=== PATIENT | female | born 1965 | race African-American/Black ===

== ENCOUNTER 2019-10-07 11:51 | Inpatient (IN) | payer BC, OTHER, SELFPAY ==
[2019-10-07] MEDS ORDERED: Insulin Regular 300 UNITS/3 ML VIAL ONE (12:33)
[2019-10-07] MEDS ORDERED: Ondansetron PF 4 MG/2 ML Vial ONE (12:33)
[2019-10-07 12:37] LABS: Bacteria/HPF 4+ HPF (None Seen); Bilirubin Negative (Negative); Blood, Urine 3+ (Negative); Clarity Turbid (Clear); Glucose, Urine (Dipstick) Greater than 1000 mg/dL (Negative); Leukocyte 500 Leu/uL (Negative); Nitrite Negative (Negative); Protein, Urine (Dipstick) 70 mg/dL (Neg-Trace); RBC/HPF Greater than 50 HPF (0-3); Urobilinogen Normal mg/dL (Less than 2); WBC/HPF Greater than 50 HPF (0-3)
[2019-10-07 12:38] LABS: Phosphorus 6.9 mg/dL (2.3-4.7)
[2019-10-07] MEDS ORDERED: HUMULIN R 100 UNITS in Sodium Chloride 0.9% 100 ML IVPB SCH ×2 (12:41→16:15)
[2019-10-07] MEDS ORDERED: Sodium Bicarb 50 MEQ/50 ML VIAL IV SCH (12:45)
[2019-10-07 12:50] LABS: #Basophils 0.1 thou/uL (0.0-0.2); #Lymphocytes 1.1 thou/uL (1.20-3.40); #Monocytes 0.9 thou/uL (0.11-0.59); #Neutrophils 17.2 thou/uL (1.40-6.50); %Basophils 0.6 % (0.0-1.0); %Eosinophils 0.2 % (0.0-10.0); %Lymphocytes 5.9 % (21.0-51.0); %Monocytes 4.8 % (0.0-10.0); %Neutrophils 88.5 % (42.0-75.0); ALT (SGPT) 12 U/L (8-55); AST (SGOT) 18 U/L (5-34); Albumin 4.6 g/dL (3.5-5.0); Alkaline Phosphatase 194 U/L (40-110); BUN (Urea Nitrogen) 31 mg/dL (9.8-20.1); Bilirubin, Total 0.4 mg/dL (0.2-1.2); Calc. Creatinine Clearance 0 mL/min (70-130); Calcium 9.9 mg/dL (7.8-10.44); Carbon Dioxide Less than 8 mmol/L (22-29); Estimated GFR-MDRD 26; Globulin 4.7 g/dL (2.4-3.5); Glucose 746 mg/dL (70-105); Hemoglobin 15.7 g/dL (12.0-16.0); Large Platelets SLIGHT; MDiff Complete? YES; Mean Corpuscular HGB CONC 29.4 g/dL (32.0-36.0); Mean Corpuscular Hemoglobin 26.9 pg (27.0-31.0); Mean Corpuscular Volume 91.5 fL (78.0-98.0); Mean Platelet Volume 11.3 fL (7.4-10.4); Platelet Count 291 thou/uL (130-400); Protein, Total 9.3 g/dL (6.0-8.3); RBC Distribution Width 15.2 % (11.5-14.5); Red Blood Cell (RBC) Count 5.84 mill/uL (4.20-5.40); White Blood Cell (WBC) Count 19.4 thou/uL (4.8-10.8)
--- NOTE | 2019-10-07 12:53 | RAD ---
EXAM: Portable chest PROVIDED CLINICAL HISTORY: Altered mental status COMPARISON: 01/27/2017 FINDINGS: Cardiac and mediastinal silhouette is within normal limits. No focal consolidation, pleural fluid or pneumothorax evident. IMPRESSION: No evidence for an acute cardiopulmonary process.
[2019-10-07] MEDS ORDERED: Cefepime 2 GM VIAL ONE (12:56)
[2019-10-07 12:57] LABS: Chloride 105 mmol/L (98-107); Potassium 6.1 mmol/L (3.5-5.1); Sodium 138 mmol/L (136-145)
[2019-10-07] MEDS ORDERED: Dextrose 5% in Water 1,000 ML IV PRN (13:30)
[2019-10-07] MEDS ORDERED: Sodium Chloride 0.9% 1,000 ML IV PRN ×8 (13:30→16:03)
[2019-10-07] MEDS ORDERED: Dextrose 5 %-0.45 % NaCl 1,000 ML IV PRN ×2 (13:30→16:03)
[2019-10-07] MEDS ORDERED: Sodium Chloride 0.9% 1,000 ML IV SCH (13:30)
[2019-10-07] MEDS ORDERED: Ondansetron PF 4 MG/2 ML Vial IVP PRN ×2 (13:30→16:03)
[2019-10-07] MEDS ORDERED: Ondansetron ODT 4 MG TAB SL PRN (13:30)
[2019-10-07] MEDS ORDERED: D5 1/2 NS w/20 mEq KCL 1,000 ML IV PRN ×2 (13:30→16:03)
[2019-10-07] MEDS ORDERED: NS 0.9% w/ 20 MEQ KCL 1,000 ML/1,000 ML BAG IV PRN ×2 (13:30)
[2019-10-07] MEDS ORDERED: Dextrose 50% Abboject 50 ML SYRINGE SLOW IVP PRN (13:30)
--- NOTE | 2019-10-07 14:20 | HP ---
PRIMARY CARE PHYSICIAN: [facility] Call admission. REASON FOR ADMISSION: Diabetes ketoacidosis. HISTORY OF PRESENT ILLNESS: A 53-year-old female who has underlying history of diabetes requiring insulin and she was not taking insulin for last three months. For last several days, the patient was having polyuria, polydipsia, and she was losing weight. The patient was also having dizziness, lightheadedness, and her condition gotten worse for last three days and that is why family member brought her to emergency room for evaluation. In the emergency room, the patient appeared lethargic and very weak. She had routine blood test, which showed leukocytosis with left shift and carbon dioxide was less than 8 and her potassium was 6.1 with blood sugar 746 and lactic acid 6.3. The patient was also having ketosis and her urinalysis was consistent with UTI. In the emergency room, the patient was tachycardic, though hemodynamically stable and she was also tachypneic. In the emergency room, the patient was given IV fluid up until she started making urine and she was given bolus insulin and subsequently insulin drip was started as well as empiric broad-spectrum antibiotic therapy given after culture. The patient also received one ampule of sodium bicarbonate in the emergency room. REVIEW OF SYSTEMS: CONSTITUTIONAL: Negative for weight loss or gain, ability to conduct usual activities. SKIN: Negative for rash, itching. EYES: Negative for double vision, pain. ENT/MOUTH: Negative for nose bleeding, neck stiffness, pain, tenderness. CARDIOVASCULAR: Negative for palpitations, dyspnea on exertion, orthopnea. RESPIRATORY: Negative for shortness of breath, wheezing, cough, hemoptysis, fever or night sweats. GASTROINTESTINAL: Negative for poor appetite, abdominal pain, heartburn, nausea, vomiting, constipation, or diarrhea. GENITOURINARY: Negative for urgency, frequency, dysuria, nocturia. MUSCULOSKELETAL: Negative for pain, swelling. NEUROLOGIC/PSYCHIATRIC: Negative for anxiety, depression. ALLERGY/IMMUNOLOGIC: Negative for skin rash, bleeding tendency. Please see my HPI for pertinent positives and negatives. All other review of systems reviewed and negative except as mentioned in HPI. Above-mentioned review of system is limited because of mental status. PAST MEDICAL HISTORY: Diabetes, type 2, requiring insulin and hypertension. PAST SURGICAL HISTORY: Knee surgery. PAST PSYCHIATRIC HISTORY: Reviewed and negative. ALLERGIES: NO KNOWN DRUG ALLERGIES. CURRENT HOME MEDICATIONS: The patient was only taking amitriptyline 10 mg as needed for sleep. FAMILY HISTORY: Congestive heart failure in her mother. SOCIAL HISTORY: The patient lives alone by herself. No history of tobacco, alcohol, or illicit drug abuse. EMERGENCY ROOM COURSE: The patient has received vancomycin, Levaquin, IV fluid, sodium bicarbonate, insulin bolus and some insulin drip and cefepime. PHYSICAL EXAMINATION: VITAL SIGNS: Currently, blood pressure 159/112, respiratory rate 38, temperature 97.6, saturation 100% on room air with pulse 122. Weight 89.8 kg. GENERAL: The patient is currently alert, awake, follows simple command, tachycardic, tachypneic, no obvious acute distress. HEENT: Head; normocephalic, atraumatic. Eyes; pupils round, reactive to light. Extraocular muscle intact. ENT; dry mucous membranes. No oral lesion. No pharyngeal erythema. No exudate. NECK: Supple. No JVD. No meningeal signs of irritation. LUNGS: Clear to auscultation without any rhonchi or rales. CARDIAC: S1, S2 regular. Tachycardia. No murmur. No gallop. No rub. ABDOMEN: Soft, bowel sounds present, nontender, nondistended. No organomegaly. No mass. No suprapubic tenderness. BACK: No CVA tenderness. EXTREMITIES: Upper extremities, passive movement of all joints are normal. Lower extremity, no edema. Good distal pulsation. SKIN: No skin rash. HEMATOLOGICAL SYSTEM: No lymphadenopathy. PSYCHIATRIC: Normal affect. NEUROLOGIC: Nonfocal examination. She moves all 4 limbs. SIGNIFICANT LABORATORY DATA: EKG showing sinus tachycardia. Chest x-ray based on my review no acute cardiopulmonary process. CBC; WBC 19.4, hemoglobin 15.7, platelet 291. BMP; Sodium 138, potassium 6.1, chloride 105, carbon dioxide less than 8, BUN 31, creatinine 2.36, glucose 746, calcium 9.9, protein 9.3, albumin 4.6, AST 18, ALT 12, alkaline phosphatase 194. Lactic acid 6.3. Troponin less than 0.010. Urinalysis consistent with urinary tract infection. Magnesium 3.0, phosphorus 6.9. Beta hydroxybutyrate 12.19. ASSESSMENT: 1. Severe diabetes ketoacidosis with met. 2. Metabolic acidosis with lactic acidosis. 3. Sepsis criteria. 4. Urinary tract infection. 5. Hyperkalemia likely due to metabolic acidosis. 6. Hyperglycemia with diabetic ketoacidosis. 7. Noncompliance with the treatment. PLAN: The patient will be admitted to the ICU for close monitoring. Diabetes ketoacidosis protocol will be initiated. Pulmonary has been notified from emergency room. The patient will be given empiric antibiotic therapy with cefepime and Levaquin for now. Once diabetes ketoacidosis resolves and anion gap closed, at that time, we will start dextrose solution and insulin drip and subsequently, we will change to only insulin therapy. Deep venous thrombosis prophylaxis; heparin 5,000 units subcu twice daily. GI prophylaxis; Protonix 40 mg IV daily. CODE STATUS: Full code. The patient is full code. The patient does not have any surrogate decision maker. DISPOSITION PLAN: Based on clinical course. We are expecting the patient's stay in the hospital more than 2 midnights. Plan of care discussed with the patient and family member at bedside in the emergency room. The patient will be given bicarbonate and electrolytes will be replaced accordingly as per protocol. Job ID: [id number]
[2019-10-07 15:28] LABS: Lactic Acid 4.3 mmol/L (0.5-2.2)
[2019-10-07] MEDS ORDERED: Loratadine 10 MG TAB PO PRN (16:03)
[2019-10-07] MEDS ORDERED: Sodium Chloride 0.65% Nasal 44 ML BOT EA NARE PRN (16:03)
[2019-10-07] MEDS ORDERED: NS 0.9% w/ 20 MEQ KCL 1,000 ML IV PRN ×2 (16:03)
[2019-10-07] MEDS ORDERED: Senokot S 8.6-50 MG TAB PO PRN (16:03)
[2019-10-07] MEDS ORDERED: Loperamide HCl 2 MG CAP PO PRN (16:03)
[2019-10-07] MEDS ORDERED: HYDROcodone/Acetaminophen 5/325 mg Tablet PO PRN (16:03)
[2019-10-07] MEDS ORDERED: Cepastat Lozenges 1 LOZ PO PRN (16:03)
[2019-10-07] MEDS ORDERED: CCU Electrolyte Replacement 1 EACH IVPB ONE (16:03)
[2019-10-07] MEDS ORDERED: Artificial Tears 18 DROP/0.9 ML EA EYE PRN (16:03)
[2019-10-07] MEDS ORDERED: Labetalol HCl 100 MG/20 ML VIAL SLOW IVP PRN (16:03)
[2019-10-07] MEDS ORDERED: Calcium Carbonate 500 MG ChewTAB PO PRN (16:03)
[2019-10-07] MEDS ORDERED: Bisacodyl 10 MG SUPP PR PRN (16:03)
[2019-10-07] MEDS ORDERED: Potassium Phosphate 9 MMOL in Sodium Chloride 0.9% 100 ML IVPB PRN (16:14)
[2019-10-07] MEDS ORDERED: Potassium Chloride 20 MEQ TAB PO PRN (16:14)
[2019-10-07] MEDS ORDERED: Magnesium 2 GM/50 ML 2 GM in Premix Bag 1 BAG IVPB PRN (16:14)
[2019-10-07] MEDS ORDERED: Potassium Chloride 40 MEQ in Sodium Chloride 0.9% 250 ML 250 ML IVPB PRN (16:14)
[2019-10-07] MEDS ORDERED: Potassium Chloride 40 MEQ in Premix Bag 1 BAG IVPB PRN (16:14)
[2019-10-07] MEDS ORDERED: Potassium Phosphate 12 MMOL in Sodium Chloride 0.9% 250 ML 250 ML IV PRN (16:14)
[2019-10-07] MEDS ORDERED: Magnesium Oxide 400 MG TAB PO PRN ×2 (16:14)
[2019-10-07] MEDS ORDERED: PHOS-NAK 1 PKT PACK PO PRN ×2 (16:14)
[2019-10-07] MEDS ORDERED: CCU ELECTROLYTE REPLACEMENT PROTOCOL FS PRN (16:14)
[2019-10-07] MEDS ORDERED: Potassium Phosphate 15 MMOL in Sodium Chloride 0.9% 250 ML 250 ML IV PRN (16:14)
[2019-10-07] MEDS ORDERED: ADD ELECTROLYTE REPLACEMENT SET TO PROFILE FS SCH (16:15)
[2019-10-07] MEDS ORDERED: Insulin Regular 300 UNITS/3 ML VIAL IVP SCH (16:15)
[2019-10-07 16:37] VITALS: BMI 26.3
[2019-10-07 17:02] LABS: BUN (Urea Nitrogen) 33 mg/dL (9.8-20.1); Calc. Creatinine Clearance 41 mL/min (70-130); Calcium 9.5 mg/dL (7.8-10.44); Chloride 110 mmol/L (98-107); Estimated GFR-MDRD 31; Potassium 5.7 mmol/L (3.5-5.1); Sodium 141 mmol/L (136-145)
[2019-10-07 17:04] LABS: Carbon Dioxide Less than 8 mmol/L (22-29); Glucose 625 mg/dL (70-105)
[2019-10-07 20:08] LABS: BUN (Urea Nitrogen) 38 mg/dL (9.8-20.1); Calc. Creatinine Clearance 40 mL/min (70-130); Calcium 9.2 mg/dL (7.8-10.44); Chloride 113 mmol/L (98-107); Estimated GFR-MDRD 30; Glucose 549 mg/dL (70-105); Potassium 5.5 mmol/L (3.5-5.1); Sodium 141 mmol/L (136-145)
[2019-10-07 20:10] LABS: Carbon Dioxide Less than 8 mmol/L (22-29)
[2019-10-07] MEDS: Heparin 5,000 UNITS/ML VIAL SC SCH (20:37)
[2019-10-07] MEDS: HUMULIN R 100 UNITS in Sodium Chloride 0.9% 100 ML IVPB SCH (22:07)
[2019-10-08 00:48] LABS: Anion Gap 19 mmol/L (10-20); BUN (Urea Nitrogen) 44 mg/dL (9.8-20.1); Calc. Creatinine Clearance 37 mL/min (70-130); Calcium 9.3 mg/dL (7.8-10.44); Carbon Dioxide 10 mmol/L (22-29); Chloride 119 mmol/L (98-107); Estimated GFR-MDRD 27; Glucose 239 mg/dL (70-105); Potassium 4.3 mmol/L (3.5-5.1); Sodium 144 mmol/L (136-145)
[2019-10-08] MEDS: Cefepime 1 GM in Sodium Chloride 0.9% 100 ML IVPB SCH ×2 (02:15→14:04)
[2019-10-08] MEDS: HUMULIN R 100 UNITS in Sodium Chloride 0.9% 100 ML IVPB SCH (03:01)
[2019-10-08 05:24] LABS: Hemoglobin A1c Greater than 14.0 % (4.0-6.0)
[2019-10-08 05:42] LABS: ALT (SGPT) 9 U/L (8-55); AST (SGOT) 15 U/L (5-34); Albumin 3.4 g/dL (3.5-5.0); Alkaline Phosphatase 103 U/L (40-110); Anion Gap 15 mmol/L (10-20); BUN (Urea Nitrogen) 47 mg/dL (9.8-20.1); Bilirubin, Total 0.5 mg/dL (0.2-1.2); Calc. Creatinine Clearance 37 mL/min (70-130); Calcium 9.1 mg/dL (7.8-10.44); Carbon Dioxide 12 mmol/L (22-29); Chloride 120 mmol/L (98-107); Estimated GFR-MDRD 27; Globulin 3.5 g/dL (2.4-3.5); Glucose 175 mg/dL (70-105); Magnesium 2.2 mg/dL (1.6-2.6); Potassium 4.1 mmol/L (3.5-5.1); Protein, Total 6.9 g/dL (6.0-8.3); Sodium 143 mmol/L (136-145)
[2019-10-08 05:43] LABS: Phosphorus Less than 1.0 mg/dL (2.3-4.7)
[2019-10-08 05:55] LABS: #Lymphocytes 1.2 thou/uL (1.20-3.40); #Monocytes 0.7 thou/uL (0.11-0.59); #Neutrophils 14.2 thou/uL (1.40-6.50); %Eosinophils 0.2 % (0.0-10.0); %Lymphocytes 7.6 % (21.0-51.0); %Monocytes 4.5 % (0.0-10.0); %Neutrophils 87.7 % (42.0-75.0); Hemoglobin 13.2 g/dL (12.0-16.0); Mean Corpuscular HGB CONC 31.2 g/dL (32.0-36.0); Mean Corpuscular Hemoglobin 26.4 pg (27.0-31.0); Mean Corpuscular Volume 84.4 fL (78.0-98.0); Mean Platelet Volume 9.9 fL (7.4-10.4); Platelet Count 192 thou/uL (130-400); RBC Distribution Width 14.6 % (11.5-14.5); Red Blood Cell (RBC) Count 5.02 mill/uL (4.20-5.40); White Blood Cell (WBC) Count 16.1 thou/uL (4.8-10.8)
[2019-10-08 06:51] LABS: Lactic Acid 1.1 mmol/L (0.5-2.2)
[2019-10-08] MEDS ORDERED: Dextrose 50% Abboject 50 ML SYRINGE SLOW IVP PRN (08:20)
[2019-10-08] MEDS ORDERED: Dextrose 5% in Water 1,000 ML IV PRN (08:20)
[2019-10-08 09:00] LABS: Bicarbonate (HCO3v) 4.6 mmol/L (22.0-28.0); CO2 Tension (PvCO2) 31.4 mmHg (40.0-50.0); Calcium, Ionized 1.18 mmol/L (See Comments:); Chloride 114 mmol/L (98-107); Hemoglobin - Calc 18.2 g/dL (12.0-16.0); Potassium 5.6 mmol/L (3.5-5.1); Sodium 128 mmol/L (138-145); T. Carbon Dioxide 5.6 mmol/L (22.0-28.0); vO2 Saturation-calc 48.8 % (60.0-85.0)
[2019-10-08] MEDS ORDERED: FLU VACC QS2019-20(6MOS UP)/PF 60 MCG/0.5 ML SYRINGE IM ONE (09:00)
[2019-10-08 09:10] LABS: Base Excess-Venous Less than -30.0 mmol/L (-2.0 to 3.0)
[2019-10-08] MEDS: Sodium Chloride 0.45% 1,000 ML IV SCH ×2 (09:13→20:18)
[2019-10-08] MEDS: Heparin 5,000 UNITS/ML VIAL SC SCH ×3 (09:14→20:19)
[2019-10-08] MEDS: PHOS-NAK 1 PKT PACK PO SCH ×3 (09:14→20:19)
[2019-10-08] MEDS ORDERED: HumuLIN 70/30 (300 UNITS/3 ML VIAL) SC SCH ×2 (09:15→17:00)
--- NOTE | 2019-10-08 09:49 | CON ---
DATE OF CONSULTATION: 10/08/2019 CONSULTING PHYSICIAN: [facility]ist Group. REASON FOR CONSULTATION: DKA. HISTORY OF PRESENT ILLNESS: A 53-year-old female, who came in with polyuria, polydipsia, and weight loss with a blood sugar of 746 and a potassium of 6.1. She was put on DKA protocol, apparently has already closed her gap to the point where she is being taken off the insulin drip this morning. She has no acute complaints. PAST MEDICAL HISTORY: 1. Diabetes type 2 requiring insulin. 2. Hypertension. PAST SURGICAL HISTORY: Knee surgery. ALLERGIES: NONE. MEDICATIONS: Prior to admission; amitriptyline 10 mg as needed for sleep. It is not clear if she was treating her diabetes at all. SOCIAL HISTORY: Nonsmoker. Does not consume alcohol. Does not use illicit drugs. PHYSICAL EXAMINATION: VITAL SIGNS: Temperature 97.7, pulse 85, blood pressure 129/73, O2 saturations 99%. GENERAL: She is awake, in no distress. HEENT: Unremarkable. NECK: No adenopathy or JVD. CHEST: Clear anteriorly. CARDIAC: S1 and S2. Regular. ABDOMEN: Soft. EXTREMITIES: No edema. NEUROLOGIC: She moves all 4 extremities. Alert and oriented x4. IMAGING STUDIES: Chest x-ray shows no acute findings. LABORATORY DATA: White blood cell count 16.1, hematocrit 42.3, and platelet count 192. Sodium 143, potassium 4.1, chloride 120, CO2 of 12, anion gap 11, BUN 47, creatinine 2.3, glucose 175. Hemoglobin A1c greater than 14. Urinalysis showed glucosuria. Beta-hydroxybutyrate was initially 12, now down to 2.1. ASSESSMENT: Type 2 diabetes with medical noncompliance, admitted for severe hyperglycemia with diabetic ketoacidosis. PLAN: The patient is being switched over to subcutaneous insulin and she is going to be fed. My assumption is she will be probably transferring out of the CCU. I agree with current management. Job ID: [id number]
--- NOTE | 2019-10-08 14:10 | PDOC.HOSPP ---
- Subjective Encounter Date: 10/08/19 Encounter Time: 10:30 Subjective: Patient seen and examined. No new complaints. No overnight events - Objective Vital Signs & Weight: Vital Signs (12 hours) Temp 10/08/19 07:00 98.0 F Weight Weight 178 lb 2.136 oz Most Recent Monitor Data Heart Rate from ECG 79 NIBP 125/74 NIBP BP-Mean 91 Respiration from ECG 29 SpO2 96 I&O: 10/07/19 10/08/19 10/09/19 06:59 06:59 06:59 Intake Total 3547.8 1270 Output Total 1350 250 Balance 2197.8 1020 Result Diagrams: 10/08/19 03:26 10/08/19 03:26 Additional Labs: Accuchecks 10/08/19 10/08/19 10/08/19 11:23 10:26 09:26 POC Glucose 125 H 136 H 159 H 10/08/19 10/08/19 10/08/19 08:03 07:03 06:19 POC Glucose 170 H 155 H 151 H 10/08/19 10/08/19 10/08/19 05:20 04:03 03:00 POC Glucose 148 H 179 H 153 H 10/08/19 10/08/19 10/07/19 02:06 00:09 23:13 POC Glucose 188 H 220 H 280 H 10/07/19 10/07/19 10/07/19 22:00 21:02 20:07 POC Glucose 305 H 372 H 412 H 10/07/19 10/07/19 10/07/19 19:07 18:04 17:14 POC Glucose 461 H 515 H 531 H 10/07/19 10/07/19 10/07/19 15:48 14:43 12:07 POC Glucose Greater than 550 H* Greater than 550 H* Greater than 550 H* Radiology Reviewed by me: Yes EKG Reviewed by me: Yes Hospitalist ROS - Review of Systems ENT: denies: ear pain, ear discharge, nose pain, nose discharge, nose congestion , mouth pain, mouth swelling, throat pain, throat swelling, other Respiratory: denies: cough, dry, shortness of breath, hemoptysis, SOB with excertion, pleuritic pain, sputum, wheezing, other Cardiovascular: denies: chest pain, palpitations, orthopnea, paroxysmal noc. dyspnea, edema, light headedness, other Gastrointestinal: denies: nausea, vomiting, abdominal pain, diarrhea, constipation, melena, hematochezia, other Genitourinary: denies: dysuria, frequency, incontinence, hematuria, retention, other Musculoskeletal: denies: neck pain, shoulder pain, arm pain, back pain, hand pain, leg pain, foot pain, other - Medication Medications: Active Medications Generic Name Dose Route Start Last Admin Trade Name Freq PRN Reason Stop Dose Admin Heparin Sodium (Porcine) 5,000 units 10/07/19 21:00 10/08/19 09:14 Heparin SC 5,000 units TID KALYANI Administration Cefepime HCl 1 gm/ Sodium 100 mls @ 200 mls/hr 10/08/19 01:00 10/08/19 02:15 Chloride IVPB 100 mls 0100,1300 KALYANI Administration Sodium Chloride 1,000 mls @ 100 mls/hr 10/08/19 08:30 10/08/19 09:13 1/2 Normal Saline IV 1,000 mls .Q10H KALYANI Administration Miscellaneous Medication 1 pkt 10/08/19 09:00 10/08/19 09:14 Phos-Nak PO 1 pkt TID KALYANI Administration - Exam General Appearance: NAD, awake alert Eye: PERRL, anicteric sclera ENT: normocephalic atraumatic, no oropharyngeal lesions Neck: supple, symmetric, no JVD, no thyromegaly Heart: RRR, no murmur, no gallops, no rubs Respiratory: CTAB, no wheezes, no rales, no ronchi Gastrointestinal: soft, non-tender, non-distended, normal bowel sounds Extremities: no cyanosis, no clubbing, no edema Skin: normal turgor, no lesions Neurological: no focal deficits Musculoskeletal: normal tone, normal strength Psychiatric: normal affect, normal behavior Hosp A/P (1) Acute metabolic encephalopathy Code(s): G93.41 - METABOLIC ENCEPHALOPATHY Status: Resolved (2) DKA (diabetic ketoacidoses) Code(s): E11.10 - TYPE 2 DIABETES MELLITUS WITH KETOACIDOSIS WITHOUT COMA Status: Resolved Qualifiers: Diabetes mellitus type: type 2 (3) Acute kidney failure Status: Acute (4) Metabolic acidosis Code(s): E87.2 - ACIDOSIS Status: Acute (5) DM2 (diabetes mellitus, type 2) Status: Chronic (6) Lactic acidosis Code(s): E87.2 - ACIDOSIS Status: Ruled-out (7) UTI (urinary tract infection) Status: Acute - Plan old records reviewed/req, continue antibiotics 10/08/19 transfer to medical continue IVF continue IV antibiotics start insulin 70/30 15 unit sc bid sliding scale insulin replace phosphorus repeat labs tomorrow
[2019-10-08] MEDS: Insulin Regular 300 UNITS/3 ML VIAL SC PRN ×2 (18:04→20:20)
[2019-10-08] MEDS: Acetaminophen 325 MG TAB PO PRN (18:09)
[2019-10-09] MEDS: Acetaminophen 325 MG TAB PO PRN ×2 (00:34→17:05)
[2019-10-09] MEDS: Cefepime 1 GM in Sodium Chloride 0.9% 100 ML IVPB SCH (00:35)
[2019-10-09] MEDS: Insulin Regular 300 UNITS/3 ML VIAL SC PRN ×2 (00:37→05:11)
[2019-10-09 05:15] LABS: #Lymphocytes 0.8 thou/uL (1.20-3.40); #Monocytes 0.8 thou/uL (0.11-0.59); #Neutrophils 8.8 thou/uL (1.40-6.50); %Basophils 0.2 % (0.0-1.0); %Lymphocytes 7.4 % (21.0-51.0); %Monocytes 7.2 % (0.0-10.0); %Neutrophils 85.2 % (42.0-75.0); Hemoglobin 12.3 g/dL (12.0-16.0); Mean Corpuscular HGB CONC 30.5 g/dL (32.0-36.0); Mean Corpuscular Hemoglobin 25.2 pg (27.0-31.0); Mean Corpuscular Volume 82.8 fL (78.0-98.0); Mean Platelet Volume 10.3 fL (7.4-10.4); Platelet Count 140 thou/uL (130-400); RBC Distribution Width 15.2 % (11.5-14.5); Red Blood Cell (RBC) Count 4.89 mill/uL (4.20-5.40); White Blood Cell (WBC) Count 10.4 thou/uL (4.8-10.8)
[2019-10-09] MEDS: Ondansetron ODT 4 MG TAB PO PRN ×2 (05:18→12:33)
[2019-10-09] MEDS: Sodium Chloride 0.45% 1,000 ML IV SCH ×4 (05:21→23:51)
[2019-10-09 05:36] LABS: Anion Gap 15 mmol/L (10-20); BUN (Urea Nitrogen) 55 mg/dL (9.8-20.1); Calc. Creatinine Clearance 25 mL/min (70-130); Calcium 8.8 mg/dL (7.8-10.44); Carbon Dioxide 10 mmol/L (22-29); Chloride 117 mmol/L (98-107); Estimated GFR-MDRD 18; Glucose 275 mg/dL (70-105); Phosphorus 1.5 mg/dL (2.3-4.7); Potassium 4.1 mmol/L (3.5-5.1); Sodium 138 mmol/L (136-145)
[2019-10-09] MEDS ORDERED: Potassium Phosphate 9 MMOL in Sodium Chloride 0.9% 100 ML IVPB PRN (05:59)
[2019-10-09] MEDS ORDERED: Sodium Phosphate 30 MMOL in Sodium Chloride 0.9% 250 ML 250 ML IVPB SCH (07:30)
[2019-10-09] MEDS: cefTRIAXone\\ROCEPHIN 1 GM in Sodium Chloride 0.9% 100 ML IVPB SCH (08:51)
[2019-10-09] MEDS: PHOS-NAK 1 PKT PACK PO SCH ×3 (08:53→20:01)
[2019-10-09] MEDS: Heparin 5,000 UNITS/ML VIAL SC SCH ×3 (08:53→20:02)
--- NOTE | 2019-10-09 09:35 | PDOC.HOSPP ---
- Subjective Encounter Date: 10/09/19 Encounter Time: 09:15 Subjective: Patient seen and examined. No new complaints. No overnight events - Objective Vital Signs & Weight: Vital Signs (12 hours) Temp Pulse Resp BP Pulse Ox 10/09/19 08:22 99.5 F 80 18 137/79 98 10/09/19 04:00 98.2 F 81 18 143/81 H 98 10/09/19 00:00 98.6 F 88 18 133/80 99 Weight Admit Weight 178 lb Weight 178 lb 2.136 oz Most Recent Monitor Data Heart Rate from ECG 79 NIBP 125/74 NIBP BP-Mean 91 Respiration from ECG 29 SpO2 96 I&O: 10/08/19 10/09/19 10/10/19 06:59 06:59 06:59 Intake Total 3547.8 2870 Output Total 1350 250 Balance 2197.8 2620 Result Diagrams: 10/09/19 04:46 10/09/19 04:46 Additional Labs: Accuchecks 10/09/19 10/09/19 10/08/19 05:00 00:25 20:18 POC Glucose 255 H 245 H 322 H 10/08/19 10/08/19 10/08/19 17:01 11:23 10:26 POC Glucose 299 H 125 H 136 H 10/08/19 09:26 POC Glucose 159 H Hospitalist ROS - Review of Systems Eyes: denies: pain, vision change, conjunctivae inflammation, eyelid inflammation, redness, other ENT: denies: ear pain, ear discharge, nose pain, nose discharge, nose congestion , mouth pain, mouth swelling, throat pain, throat swelling, other Respiratory: reports: cough, sputum. denies: dry, shortness of breath, hemoptysis, SOB with excertion, pleuritic pain, wheezing, other Cardiovascular: denies: chest pain, palpitations, orthopnea, paroxysmal noc. dyspnea, edema, light headedness, other Gastrointestinal: denies: nausea, vomiting, abdominal pain, diarrhea, constipation, melena, hematochezia, other Genitourinary: denies: dysuria, frequency, incontinence, hematuria, retention, other Musculoskeletal: denies: neck pain, shoulder pain, arm pain, back pain, hand pain, leg pain, foot pain, other - Medication Medications: Active Medications Generic Name Dose Route Start Last Admin Trade Name Freq PRN Reason Stop Dose Admin Acetaminophen 650 mg 10/07/19 16:03 10/09/19 00:34 Tylenol PO 650 mg Q4H PRN Administration Headache/Fever/Mild Pain (1-3) Heparin Sodium (Porcine) 5,000 units 10/07/19 21:00 10/09/19 08:53 Heparin SC 5,000 units TID KALYANI Administration Potassium Phosphate 9 mmol/ 103 mls @ 25.75 mls/hr 10/09/19 05:59 10/09/19 06 :28 Sodium Chloride IVPB 103 mls ASDIR PRN Administration Phosphate 1.0-1.8 Sodium Chloride 1,000 mls @ 125 mls/hr 10/09/19 07:30 10/09/19 08:51 1/2 Normal Saline IV 1,000 mls .Q8H KALYANI Administration Ceftriaxone Sodium 1 gm/ 100 mls @ 200 mls/hr 10/09/19 08:00 10/09/19 08:51 Sodium Chloride IVPB 100 mls Q24HR KALYANI Administration Insulin Human Regular 0 units 10/08/19 08:20 10/09/19 05:11 Humulin R SC 9 unit .AGGRESSIVE SLIDING PRN Administration Aggressive Correctional Scale Insulin Human Regular 0 units 10/08/19 08:20 10/09/19 00:37 Humulin R SC 2 unit .BEDTIME SLIDING SC PRN Administration Bedtime Correctional Scale Miscellaneous Medication 1 pkt 10/08/19 09:00 10/09/19 08:53 Phos-Nak PO 1 pkt TID KALYANI Administration Ondansetron HCl 4 mg 10/07/19 16:03 10/09/19 05:18 Zofran Odt PO 4 mg Q6H PRN Administration Nausea/Vomiting - Exam General Appearance: NAD, awake alert Eye: PERRL, anicteric sclera ENT: normocephalic atraumatic, no oropharyngeal lesions Neck: supple, symmetric, no JVD Heart: RRR, no murmur, no gallops Respiratory: CTAB, no wheezes, no rales Gastrointestinal: soft, non-tender, non-distended, normal bowel sounds Extremities: no cyanosis, no clubbing, no edema Skin: normal turgor, no lesions Neurological: no focal deficits Musculoskeletal: normal tone, normal strength Psychiatric: normal affect, normal behavior Hosp A/P (1) Acute metabolic encephalopathy Code(s): G93.41 - METABOLIC ENCEPHALOPATHY Status: Resolved (2) DKA (diabetic ketoacidoses) Code(s): E11.10 - TYPE 2 DIABETES MELLITUS WITH KETOACIDOSIS WITHOUT COMA Status: Resolved Qualifiers: Diabetes mellitus type: type 2 (3) Acute kidney failure Status: Acute (4) Metabolic acidosis Code(s): E87.2 - ACIDOSIS Status: Resolved (5) DM2 (diabetes mellitus, type 2) Status: Chronic (6) Lactic acidosis Code(s): E87.2 - ACIDOSIS Status: Ruled-out (7) UTI (urinary tract infection) Status: Acute (8) Hypophosphatemia Code(s): E83.39 - OTHER DISORDERS OF PHOSPHORUS METABOLISM Status: Acute - Plan old records reviewed/req, continue antibiotics 10/08/19 transfer to medical continue IVF continue IV antibiotics start insulin 70/30 15 unit sc bid sliding scale insulin replace phosphorus repeat labs tomorrow 10/09/19 replace potassium phosphate and continue phosnac change IVF 1/2 NS at 125 ml per hour monitor renal function and repeat labs change antibiotics to oral levaquin and rocephin 1 gm q 24 hour increase insulin 70/30 to 25 unit sc bid change accucheck ACHS ambulate as tolerated Medication reviewed and continue to provide symptomatic care and supportive care
[2019-10-09] MEDS: HumuLIN 70/30 (300 UNITS/3 ML VIAL) SC SCH ×3 (10:22→17:05)
[2019-10-09 11:34] LABS: Creatinine, Urine 54.68 mg/dL (47-110)
--- NOTE | 2019-10-09 15:11 | PQF ---
CLINICAL DOCUMENTATION IMPROVEMENT CLARIFICATION FORM: ICD-10 Updated PLEASE DO AN ADDENDUM TO THE PROGRESS NOTE WITH ANY DOCUMENTATION UPDATES OR ADDITIONS AND CARRY THROUGH TO DC SUMMARY. THANK YOU. DATE: 10/09/19 ATTN: DR. BARBA Please exercise your independent, professional judgment in responding to the clarification form. Clinical indicators are provided on the bottom of this form for your review Please check appropriate box(es): [ x ] Sepsis due to: (Pna, UTI, gangrenous gall bladder, etc.) _UTI Due to: [ ] Device (please specify) [ ] Implant [ ] Graft [ ] Infusion [ ] SIRS due to non-infectious process (please specify etiology) [ ] with organ dysfunction [ x] without organ dysfunction [ ] Severe sepsis with acute organ dysfunction of: (Examples: respiratory failure, encephalopathy, acute kidney failure, other) [ ] Septic Shock [ ] Localized infection without sepsis [ ] Other diagnosis [ ] Unable to determine In addition, please specify: Present on Admission (POA): [ x ] Yes [ ] No [ ] Unable to determine For continuity of documentation, please document condition throughout progress notes and discharge summary. Thank You. CLINICAL INDICATORS - SIGNS / SYMPTOMS / LABS / RESULTS AND LOCATION IN MR H&P 10/07: "SEPSIS CRITERIA" PULSE 125 RR 38 WBC 10/07: 19.4 LACTIC ACID 10/07: 4.3 RISKS: UTI (H&P 10/07) DIABETES WITH DKA (H&P 10/07) TREATMENT: IV VANCOMYCIN (ER) IV FLUIDS (ER-PRESENT) IV LEVAQUIN (ER-10/09) IV CEFEPIME (ER-10/08) IV ROCEPHIN (STARTED 10/09) BLOOD AND URINE CULTURES (10/07) (This form is maintained as a part of the permanent medical record) 2014 [employer] All Rights Reserved NORMAN [email or web address] Office: [phone] [facility] MEDICAL CENTERTrisha
[2019-10-09] MEDS: Amitriptyline HCl 10 MG TAB PO SCH (20:01)
[2019-10-10 06:24] LABS: Anion Gap 13 mmol/L (10-20); BUN (Urea Nitrogen) 53 mg/dL (9.8-20.1); Calc. Creatinine Clearance 23 mL/min (70-130); Calcium 8.5 mg/dL (7.8-10.44); Carbon Dioxide 12 mmol/L (22-29); Chloride 119 mmol/L (98-107); Estimated GFR-MDRD 16; Glucose 75 mg/dL (70-105); Potassium 3.1 mmol/L (3.5-5.1); Sodium 141 mmol/L (136-145)
[2019-10-10 06:28] LABS: Phosphorus 1.5 mg/dL (2.3-4.7)
[2019-10-10] MEDS ORDERED: Potassium Phosphate 15 MMOL in Sodium Chloride 0.9% 250 ML 250 ML IVPB SCH (06:45)
[2019-10-10] MEDS: cefTRIAXone\\ROCEPHIN 1 GM in Sodium Chloride 0.9% 100 ML IVPB SCH (08:11)
[2019-10-10] MEDS: Sodium Chloride 0.45% 1,000 ML IV SCH (08:13)
[2019-10-10] MEDS: Heparin 5,000 UNITS/ML VIAL SC SCH ×3 (08:14→20:59)
[2019-10-10] MEDS: HumuLIN 70/30 (300 UNITS/3 ML VIAL) SC SCH ×3 (08:14→17:44)
[2019-10-10] MEDS: PHOS-NAK 1 PKT PACK PO SCH ×3 (08:17→20:40)
[2019-10-10] MEDS: Acetaminophen 325 MG TAB PO PRN ×3 (08:44→20:40)
--- NOTE | 2019-10-10 10:51 | RAD ---
EXAM: CHEST ONE VIEW HISTORY: Shortness of breath. COMPARISON: 10/07/2019 FINDINGS: Cardiac silhouette is magnified by projection. Pulmonary vasculature is at the upper limits of normal . There is mild increased parenchymal opacity seen along the lateral aspect right midlung zone and right lung base with increased opacity seen at the left lung base. These opacities were not seen on p rior exam. Findings may be related to developing bilateral multifocal pneumonia. Follow-up to complete resolution is recommended. Degenerative changes are seen in the spine. IMPRESSION: Bibasilar parenchymal opacities worrisome for bilateral pneumonia. Atypical pneumonia cannot be entir sophia excluded. Follow-up to resolution is recommended.
--- NOTE | 2019-10-10 12:13 | ULT ---
BILATERAL RENAL ULTRASOUND: Date: 10/10/2019 INDICATION: Acute kidney insufficiency. FINDINGS: Both kidneys measure approximately 14.0 cm. No evidence of hydronephrosis. Cortical echogenicity is m ildly increased bilaterally. Urinary bladder is distended and appears unremarkable. IMPRESSION: Mild increased cortical echogenicity. Renal ultrasound otherwise unremarkable. POS: [facility]
[2019-10-10] MEDS: Azithromycin 500 MG in Sodium Chloride 0.9% 250 ML 250 ML IVPB SCH (13:10)
[2019-10-10] MEDS: Sodium Bicarbonate Tab 325 MG TAB PO SCH ×2 (14:43→20:40)
[2019-10-10] MEDS: Lactated Ringer's 1,000 ML IV SCH ×2 (14:47→20:41)
--- NOTE | 2019-10-10 17:44 | CON ---
DATE OF CONSULTATION: 10/10/2019 SERVICE: Nephrology. REASON FOR CONSULTATION: Acute kidney injury. CHIEF COMPLAINT: Generalized weakness, polyuria, and weight loss. REQUESTING PHYSICIAN: Dr. Clem Castro. HISTORY OF PRESENT ILLNESS: A 53-year-old female with known history of diabetes mellitus, on insulin; chronic kidney disease, and hypertension, admitted due to generalized weakness, polyuria, urinary discomfort and dysuria, and weight loss. The patient reportedly has been off long-acting insulin in the last 3 months due to insurance issues. On presentation, the patient was found to have blood sugar above 700 and features of diabetic ketoacidosis, hence was started on IV fluid and insulin infusion with improvement. The patient also was felt to have UTI and was started on antibiotic had developed cough for which consideration for pneumonia is made. On presentation, creatinine was 2.36, which improved to a cesilia of 2.01 before trending up to a peak of 3.68 currently, necessitating Nephrology consult. Review of medical records showed that the patient has chronic kidney disease with current creatinine of 1.64 in 01/29/2017. Of note, during same admission, the patient had a peak creatinine of 8.11, which improved to a cesilia of 1.64. She has not seen any kidney doctors since then and has not been very compliant with medications. She currently complains of cough with sputum production as well as frequent loose stools, started earlier today. She also admitted to dysuria which has subsided. She denied leg swelling or fever, but admitted to chest pain and some shortness of breath. She denied hematemesis, nausea, vomiting, or hematochezia. PAST MEDICAL HISTORY: 1. Diabetes mellitus. 2. CKD. 3. Hypertension. 4. Prior history of pancreatitis. PAST SURGICAL HISTORY: Knee surgery. FAMILY HISTORY: Significant for congestive heart failure and diabetes mellitus in mother. SOCIAL HISTORY: The patient lives alone. She denied tobacco, alcohol, or recreational drug use. ALLERGIES: NO KNOWN DRUG ALLERGIES REPORTED. CURRENT HOME MEDICATIONS: The patient reportedly was Toujeo, but ran out about 3 months ago. She currently takes Humulin. She also reported taking amitriptyline 10 mg as needed for insomnia. CURRENT HOSPITAL MEDICATIONS: 1. Half-normal saline at 125 mL/h. 2. Azithromycin 500 mg daily. 3. Ceftriaxone 1 g intravenously daily. 4. DuoNeb 3 mL q.4 hours while awake. 5. Amitriptyline 10 mg p.o. daily at bedtime. 6. Heparin subcutaneously 5000 units t.i.d. 7. Humulin 70/30 of 25 units before meals. 8. Phos-Nak one packet p.o. t.i.d. 9. Acetaminophen 650 mg q.4 p.r.n. 10. Zofran ODT 4 mg q.6 p.r.n. for nausea or vomiting. REVIEW OF SYSTEMS: 12-point review of system performed was negative other than pertinent positives and negatives included in the history of present illness. PHYSICAL EXAMINATION: VITAL SIGNS: Temperature 98.4, pulse 85, respiratory rate 18, SpO2 of 95 on room air, blood pressure is 154/94. GENERAL: Middle-age female, in no obvious distress. Acutely ill. Fatigued, but without fever or icterus. HEENT: Normocephalic, atraumatic. Oral mucosa is moist. NECK: Supple with no JVD. CARDIOVASCULAR: Regular rhythm and rate with normal heart sounds 1 and 2. RESPIRATORY: Fair air entry bilaterally with some transmitted breath sounds, but no obvious rhonchi or use of accessory muscles. GI: Full, soft, nontender, nondistended with normal bowel sounds. EXTREMITIES: Grossly normal looking, atraumatic with no edema or erythema. Legs dry. SKIN: No rash or erythema appreciated. PATHOLOGY TECH: Conscious, alert, oriented x3 with appropriate mental status. Cranial nerves 2 through 12 are grossly intact. The patient moves all extremities. DIAGNOSTIC DATA: CBC yesterday showed WBC count of 10.9, hemoglobin of 12.3, MCV of 82.8, platelets of 140. On presentation, however, on 10/07, WBC was 19.4, hemoglobin was 15.7, and platelet was 291. Renal blood gas performed on presentation 10/07/2019, showed pH of 6.7 with pCO2 of 31. BMP earlier today showed sodium 141, potassium 3.1, chloride 119, CO2 of 12, anion gap 13, BUN 53, creatinine 3.68, glucose 75, calcium 8.5. Phosphorus is 1.5. BNP is 47.7. Urinalysis performed on presentation 10/07/2019, showed light yellow turbid urine with pH of 5.5, specific gravity of 1.019, urine protein of 70 mg/dL, urine glucose more than 1000, ketones 100, 3+ blood; negative nitrite, bilirubin; and normal urobilinogen. Leukocyte esterase was positive. Microscopy showed more than 50 rbc and more than 50 wbc with 4+ bacteria. Random urine total protein performed on 10/09, was 53 mg/dL while random urine creatinine was 54.6 with urine protein creatinine ratio of about 1 g/g of creatinine. Renal ultrasound performed earlier today showed both kidneys measuring 14 cm with no evidence of hydronephrosis. However, consequent echogenicity is mildly increased bilaterally. Chest x-ray performed earlier today showed bibasilar parenchymal opacities, worrisome for bilateral pneumonia. Atypical pneumonia cannot be entirely excluded. ASSESSMENT: 1. Acute kidney injury: Due to hemodynamic factors related to volume depletion as well as cytokine mediated injury as the patient has features of sepsis. 2. Chronic kidney disease stage 3 to 4. Baseline creatinine is unknown. Last available records showed creatinine of 1.64 in 2017. 3. Metabolic acidosis: The patient initially had high anion gap metabolic acidosis, but currently has hyperchloremic metabolic acidosis due to normal saline therapy. 4. Proteinuria with UPC of approximately 1 g/g of creatinine: Most likely related to diabetic nephropathy. 5. Volume contraction from polyuria and poor oral intake. The patient also reported poor intake as well as frequent loose stool. 6. Physical deconditioning. 7. Hypokalemia. 8. Hypophosphatemia. PLAN: 1. We will replete potassium and phosphorus with potassium phosphate. We will also get serum magnesium and replete if indicated. 2. We will discontinue normal saline and start the patient on lactated Ringer's with a view to providing IV fluid to correct volume depletion and also correct hyperchloremic metabolic acidosis. 3. Agree with antibiotics for treatment of pneumonia. 4. We will monitor the patient closely to avoid fluid overload. 5. Further treatment to follow depending on hospital course. Many thanks for involving us in the care of this patient. We will follow along with you. We will get renal function test in the morning as well as serum magnesium. Job ID: [id number]
--- NOTE | 2019-10-10 19:00 | PDOC.HOSPP ---
- Subjective Subjective: Seen and examined. Patient with worsening shortness of breath and cough, chest x -ray confirms bilateral a typical pneumonia. Patient with worsening renal function, nephrology consult requested. Patient's BNP within the normal range and there is low clinical suspicion for volume overload at this time. Patient remains volume deplete. Time was given for questions, all answered in detail. - Objective Vital Signs & Weight: Vital Signs (12 hours) Temp Pulse Resp BP BP Pulse Ox 10/10/19 16:17 98.5 F 91 18 162/91 H 94 L 10/10/19 14:59 93 16 93 L 10/10/19 12:10 98.4 F 85 18 154/94 H 95 10/10/19 08:00 95 10/10/19 07:37 99.3 F 72 16 129/74 95 Weight Admit Weight 178 lb Weight 178 lb 2.136 oz Most Recent Monitor Data Heart Rate from ECG 79 NIBP 125/74 NIBP BP-Mean 91 Respiration from ECG 29 SpO2 96 I&O: 10/09/19 10/10/19 10/11/19 06:59 06:59 06:59 Intake Total 2870 1300 Output Total 250 Balance 2620 1300 Result Diagrams: 10/09/19 04:46 10/10/19 05:46 Additional Labs: Accuchecks 10/10/19 10/10/19 10/10/19 16:31 12:13 05:03 POC Glucose 266 H 122 H 102 10/09/19 19:42 POC Glucose 127 H Radiology Reviewed by me: Yes Hospitalist ROS - Review of Systems All other systems reviewed; all pertinent +/- noted in HPI/Subj - Medication Medications: Active Medications Generic Name Dose Route Start Last Admin Trade Name Freq PRN Reason Stop Dose Admin Acetaminophen 650 mg 10/07/19 16:03 10/10/19 14:46 Tylenol PO 650 mg Q4H PRN Administration Headache/Fever/Mild Pain (1-3) Albuterol/Ipratropium 3 ml 10/10/19 15:00 10/10/19 18:08 Duoneb NEB Not Given [id number] KALYANI Amitriptyline HCl 10 mg 10/09/19 21:00 10/09/19 20:01 Elavil PO 10 mg HS KALYANI Administration Heparin Sodium (Porcine) 5,000 units 10/07/19 21:00 10/10/19 14:49 Heparin SC 5,000 units TID KALYANI Administration Potassium Phosphate 9 mmol/ 103 mls @ 25.75 mls/hr 10/09/19 05:59 10/09/19 06 :28 Sodium Chloride IVPB 103 mls ASDIR PRN Administration Phosphate 1.0-1.8 Ceftriaxone Sodium 1 gm/ 100 mls @ 200 mls/hr 10/09/19 08:00 10/10/19 08:11 Sodium Chloride IVPB 100 mls Q24HR KALYANI Administration Azithromycin 500 mg/ Sodium 250 mls @ 250 mls/hr 10/10/19 12:00 10/10/19 13: 10 Chloride IVPB 250 mls Q24HR KALYANI Administration Lactated Ringer's 1,000 mls @ 200 mls/hr 10/10/19 14:00 10/10/19 14:47 Lactated Ringer's IV 1,000 mls .Q5H KALYANI Administration Insulin Human Isoph/Insulin Regular 25 units 10/09/19 07:30 10/10/19 17:44 Humulin 70/30 SC 25 unit AC KALYANI Administration Insulin Human Regular 0 units 10/08/19 08:20 10/09/19 05:11 Humulin R SC 9 unit .AGGRESSIVE SLIDING PRN Administration Aggressive Correctional Scale Insulin Human Regular 0 units 10/08/19 08:20 10/09/19 00:37 Humulin R SC 2 unit .BEDTIME SLIDING SC PRN Administration Bedtime Correctional Scale Miscellaneous Medication 1 pkt 10/08/19 09:00 10/10/19 14:44 Phos-Nak PO 1 pkt TID KALYANI Administration Ondansetron HCl 4 mg 10/07/19 16:03 10/09/19 12:33 Zofran Odt PO 4 mg Q6H PRN Administration Nausea/Vomiting Sodium Bicarbonate 650 mg 10/10/19 15:00 10/10/19 14:43 Bicarbonate, Sodium PO 650 mg TID KALYANI Administration Sodium Chloride 10 ml 10/10/19 09:00 10/10/19 08:16 Flush - Normal Saline IVF 10 ml Q12HR KALYANI Administration - Exam General Appearance: NAD, awake alert Eye: anicteric sclera ENT: normocephalic atraumatic, moist mucosa Neck: supple, symmetric, no lymphadenopathy Heart: RRR, no murmur, no gallops, no rubs Respiratory: CTAB, no wheezes, no rales, no ronchi, normal chest expansion Gastrointestinal: soft, non-tender, non-distended, no rigidity Extremities: no edema, 1+ LE edema Skin: no rashes Neurological: cranial nerve grossly intact, no focal deficits Musculoskeletal: generalized weakness Psychiatric: normal affect, normal behavior, A&O x 3 Hosp A/P (1) Bilateral pneumonia Code(s): J18.9 - PNEUMONIA, UNSPECIFIED ORGANISM Status: Acute (2) Acute kidney failure Status: Acute (3) Hypophosphatemia Code(s): E83.39 - OTHER DISORDERS OF PHOSPHORUS METABOLISM Status: Acute (4) UTI (urinary tract infection) Status: Acute (5) Acute metabolic encephalopathy Code(s): G93.41 - METABOLIC ENCEPHALOPATHY Status: Resolved (6) DKA (diabetic ketoacidoses) Code(s): E11.10 - TYPE 2 DIABETES MELLITUS WITH KETOACIDOSIS WITHOUT COMA Status: Resolved Qualifiers: Diabetes mellitus type: type 2 (7) Metabolic acidosis Code(s): E87.2 - ACIDOSIS Status: Resolved (8) Lactic acidosis Code(s): E87.2 - ACIDOSIS Status: Ruled-out (9) Hyperosmolality due to uncontrolled type 1 diabetes mellitus Code(s): E10.69 - TYPE 1 DIABETES MELLITUS WITH OTHER SPECIFIED COMPLICATION; E10.65 - TYPE 1 DIABETES MELLITUS WITH HYPERGLYCEMIA Status: Acute (10) Leucocytosis Code(s): D72.829 - ELEVATED WHITE BLOOD CELL COUNT, UNSPECIFIED Status: Acute (11) SIRS (systemic inflammatory response syndrome) Code(s): R65.10 - SIRS OF NON-INFECTIOUS ORIGIN W/O ACUTE ORGAN DYSFUNCTION Status: Acute (12) DM2 (diabetes mellitus, type 2) Status: Chronic - Plan Plan: medical unit nephrology consultation, recommendations appreciated pulmonology consultation, recommendations appreciated renal function continues to worsen, if does not improve may require hemodialysis replace electrolytes as needed I just antibiotics for a typical coverage of bilateral pneumonia long and short acting insulin for glucose control patient has been noncompliant with outpatient regimen resulting in admission with diabetic ketoacidosis and renal failure continue other home medications is able blood pressure control G.I. prophylaxis DVT prophylaxis
[2019-10-10] MEDS: Amitriptyline HCl 10 MG TAB PO SCH (20:40)
[2019-10-10] MEDS: Insulin Regular 300 UNITS/3 ML VIAL SC PRN (21:00)
[2019-10-11] MEDS: Lactated Ringer's 1,000 ML IV SCH ×5 (02:06→20:24)
[2019-10-11] MEDS: Diabetic Tussin 200 MG/10 ML UDCUP PO PRN ×3 (05:31→20:15)
[2019-10-11] MEDS: Insulin Regular 300 UNITS/3 ML VIAL SC PRN ×4 (05:35→20:15)
[2019-10-11 06:20] LABS: Albumin 2.8 g/dL (3.5-5.0); Anion Gap 18 mmol/L (10-20); BUN (Urea Nitrogen) 47 mg/dL (9.8-20.1); BUN/Creatinine Ratio 12.91; Calc. Creatinine Clearance 23 mL/min (70-130); Carbon Dioxide 10 mmol/L (22-29); Chloride 112 mmol/L (98-107); Estimated GFR-MDRD 16; Glucose 421 mg/dL (70-105); Phosphorus 2.9 mg/dL (2.3-4.7); Potassium 3.6 mmol/L (3.5-5.1); Sodium 136 mmol/L (136-145)
[2019-10-11 07:01] LABS: Anisocytosis SLIGHT = 6-15 cells (100X) (0-5/hpf); Band 25 % (5-11); Eosinophils 1 % (0-10); Lymphocytes 17 % (21-51); MDiff Complete? YES; Mean Corpuscular HGB CONC 32.4 g/dL (32.0-36.0); Mean Corpuscular Hemoglobin 26.5 pg (27.0-31.0); Mean Corpuscular Volume 81.7 fL (78.0-98.0); Mean Platelet Volume 11.2 fL (7.4-10.4); Monocytes 2 % (0-10); Myelocyte 1 % (0-0); Neutrophil 54 % (42-75); Platelet Count 102 thou/uL (130-400); Platelet Morphology Comment Appears Decreased; RBC Distribution Width 15.1 % (11.5-14.5); White Blood Cell (WBC) Count 8.9 thou/uL (4.8-10.8)
[2019-10-11] MEDS: Acetaminophen 325 MG TAB PO PRN ×3 (08:04→20:12)
[2019-10-11] MEDS: Sodium Bicarbonate Tab 325 MG TAB PO SCH ×3 (08:05→20:10)
[2019-10-11] MEDS: PHOS-NAK 1 PKT PACK PO SCH ×3 (08:06→20:10)
[2019-10-11] MEDS: Heparin 5,000 UNITS/ML VIAL SC SCH ×3 (08:09→20:11)
[2019-10-11] MEDS ORDERED: HumuLIN 70/30 (300 UNITS/3 ML VIAL) SC SCH ×2 (08:15→11:30)
[2019-10-11] MEDS: HumuLIN 70/30 (300 UNITS/3 ML VIAL) SC SCH (08:59)
--- NOTE | 2019-10-11 09:08 | RAD ---
PORTABLE CHEST: HISTORY: Shortness of breath. COMPARISON: 10/10/2019. FINDINGS: Bilateral alveolar infiltrates have progressed when compared to yesterday and show increased density and more confluence, especially in the left lower lung today. IMPRESSION: Worsening of the bilateral infiltrates when compared to yesterday's study. POS: [place]
[2019-10-11] MEDS: guaiFENesin ER 600 MG TAB PO SCH ×2 (09:31→20:10)
[2019-10-11] MEDS: cefTRIAXone\\ROCEPHIN 1 GM in Sodium Chloride 0.9% 100 ML IVPB SCH (09:32)
[2019-10-11 11:44] LABS: Base Excess (BEa) -7.2 mEq/L (-2.0 to +3.0); Calcium, Ionized 1.16 mmol/L (1.12-1.30); Hemoglobin (Hb) 12.7 g/dL (12.0-16.0); Potassium - ABG Lab 3.15 mmol/L (3.70-5.30); pH, Arterial 7.44 (7.35-7.45)
[2019-10-11 11:48] LABS: CO2 Tension 22.8 mmHg (35.0-45.0); O2 Tension (PaO2) 54.7 mmHg (80.0-100.0)
--- NOTE | 2019-10-11 11:48 | PRG ---
DATE OF SERVICE: 10/11/2019 SERVICE: Nephrology. SUBJECTIVE: A 53-year-old female seen in followup for acute renal failure superimposed on chronic kidney disease. The patient was admitted due to generalized weakness and malaise, and found to have diabetic ketoacidosis associated with acute kidney injury. The patient reports worsening cough and shortness of breath, as well as yellow sputum production. She denied nausea, vomiting, or abdominal pain. Oral intake is suboptimal. There is no history of fever. Of note, the patient did not have flu shots. Shortness of breath worsened overnight and the patient is not on oxygen supplementation. OBJECTIVE: VITAL SIGNS: Temperature 98.8, pulse 87, respiratory rate 20, SpO2 of 92% on 2 L nasal cannula, blood pressure is 151/82. GENERAL: Middle-age female, acutely ill, in mild respiratory distress. Afebrile. Anicteric. Acyanotic. HEENT: Normocephalic, atraumatic. Oral mucosa is moist. NECK: Supple with no JVD. CARDIOVASCULAR: Regular rhythm and rate with normal heart sounds one and two. RESPIRATORY: Fair air entry bilaterally with bibasilar crackles and transmitted breath sounds, but no obvious rhonchi. No use of accessory muscles. GI: Full, soft, nontender, nondistended with normal bowel sounds. EXTREMITIES: Grossly normal-looking, atraumatic with no edema or erythema. Legs are rather dry. COMMUNITY RELATIONS OFFICER: Conscious, alert, and oriented x3 with appropriate mental status. Cranial nerves 2 through 12 are grossly intact. DIAGNOSTIC DATA: CBC showed WBC count of 8.9, hemoglobin of 13.0, platelet of 102. Chemistry showed sodium 136, potassium 3.6, chloride 112, CO2 10, anion gap 18, BUN 47, creatinine 3.64, glucose 421, calcium 8.0, phosphorus 2.9, magnesium 2.0, albumin 2.8. ASSESSMENT: 1. Acute renal failure: This is due to hemodynamic factors related to volume depletion from poor oral intake as well as including GI and renal losses with contribution from cytokine-mediated injury due to sepsis. 2. Chronic kidney disease, stage 3/4. The patient had creatinine of 1.6 in 2017. That has not been seen by anybody since then. 3. Acute respiratory failure with hypoxia: Due to the pneumonia. Pneumonitis or atypical pneumonia is a concern. Chest x-ray show worsening bibasilar infiltrates. 4. Metabolic acidosis: This is initially due to high anion gap and later hyperchloremic acidosis. Anion gap is trending up currently. 5. Diabetes mellitus: Poorly controlled with hyperglycemia. 6. Proteinuria: Most likely due to diabetic nephropathy. 7. Hypertension: Control is acceptable. PLAN: 1. We will cutback IV fluid therapy due to worsening bilateral infiltrates. Overall, the patient is a clinically dry. ARDS from presumed viral pneumonitis is a concern here. 2. We will get viral respiratory panel as well as respiratory culture and arterial blood gas. 3. Glycemic control as per primary attending. 4. We will re-evaluate the patient with other diagnostic tests. 5. We will also get urine electrolytes. 6. This patient's high possibility of decompensation. We will monitor closely. Job ID: [id number]
[2019-10-11] MEDS: Azithromycin 500 MG in Sodium Chloride 0.9% 250 ML 250 ML IVPB SCH (11:51)
--- NOTE | 2019-10-11 13:46 | PDOC.HOSPP ---
- Subjective Subjective: Cough worse, now productive sputum that is yellowish in color. Requiring oxygen to maintain O2 saturation's. Chest x-ray worse with bilateral pneumonia. Adjusting insulin. Case discussed with RN and nephrology. - Objective Vital Signs & Weight: Vital Signs (12 hours) Temp Pulse Resp BP BP Pulse Ox 10/11/19 12:56 98.3 F 90 36 H 150/92 H 97 10/11/19 11:55 98.9 F 94 16 151/89 H 97 10/11/19 11:19 94 16 10/11/19 10:55 98.2 F 100 34 H 159/94 H 94 L 10/11/19 08:00 94 L 10/11/19 07:19 93 L 10/11/19 07:16 91 16 93 L 10/11/19 03:13 98.8 F 87 20 151/82 H 92 L Weight Admit Weight 178 lb Weight 178 lb 2.136 oz Most Recent Monitor Data Heart Rate from ECG 79 NIBP 125/74 NIBP BP-Mean 91 Respiration from ECG 29 SpO2 96 I&O: 10/10/19 10/11/19 10/12/19 06:59 06:59 06:59 Intake Total 1300 2750 Output Total 400 Balance 1300 2350 Result Diagrams: 10/11/19 05:28 10/11/19 05:28 Additional Labs: Accuchecks 10/11/19 10/11/19 10/10/19 11:53 05:23 19:55 POC Glucose 490 H 386 H 290 H 10/10/19 16:31 POC Glucose 266 H Radiology Reviewed by me: Yes Hospitalist ROS - Review of Systems All other systems reviewed; all pertinent +/- noted in HPI/Subj - Medication Medications: Active Medications Generic Name Dose Route Start Last Admin Trade Name Freq PRN Reason Stop Dose Admin Acetaminophen 650 mg 10/07/19 16:03 10/11/19 12:05 Tylenol PO 650 mg Q4H PRN Administration Headache/Fever/Mild Pain (1-3) Albuterol/Ipratropium 3 ml 10/10/19 15:00 10/11/19 11:19 Duoneb NEB 3 ml [id number] KALYANI Administration Amitriptyline HCl 10 mg 10/09/19 21:00 10/10/19 20:40 Elavil PO 10 mg HS KALYANI Administration Guaifenesin 200 mg 10/07/19 16:03 10/11/19 12:02 Robitussin Sf PO 200 mg Q4H PRN Administration Cough Guaifenesin 1,200 mg 10/11/19 09:00 10/11/19 09:31 Mucinex PO 1,200 mg Q12HR KALYANI Administration Heparin Sodium (Porcine) 5,000 units 10/07/19 21:00 10/11/19 08:09 Heparin SC 5,000 units TID KALYANI Administration Potassium Phosphate 9 mmol/ 103 mls @ 25.75 mls/hr 10/09/19 05:59 10/09/19 06 :28 Sodium Chloride IVPB 103 mls ASDIR PRN Administration Phosphate 1.0-1.8 Ceftriaxone Sodium 1 gm/ 100 mls @ 200 mls/hr 10/09/19 08:00 10/11/19 09:32 Sodium Chloride IVPB 100 mls Q24HR KALYANI Administration Azithromycin 500 mg/ Sodium 250 mls @ 250 mls/hr 10/10/19 12:00 10/11/19 11: 51 Chloride IVPB 250 mls Q24HR KALYANI Administration Lactated Ringer's 1,000 mls @ 100 mls/hr 10/11/19 11:19 10/11/19 11:53 Lactated Ringer's IV Not Given .Q10H KALYANI Insulin Human Regular 0 units 10/08/19 08:20 10/11/19 12:05 Humulin R SC 13 unit .AGGRESSIVE SLIDING PRN Administration Aggressive Correctional Scale Insulin Human Regular 0 units 10/08/19 08:20 10/10/19 21:00 Humulin R SC 3 unit .BEDTIME SLIDING SC PRN Administration Bedtime Correctional Scale Miscellaneous Medication 1 pkt 10/08/19 09:00 10/11/19 08:06 Phos-Nak PO 1 pkt TID KALYANI Administration Ondansetron HCl 4 mg 10/07/19 16:03 10/09/19 12:33 Zofran Odt PO 4 mg Q6H PRN Administration Nausea/Vomiting Sodium Bicarbonate 650 mg 10/10/19 15:00 10/11/19 08:05 Bicarbonate, Sodium PO 650 mg TID KALYANI Administration Sodium Chloride 10 ml 10/10/19 09:00 10/11/19 08:10 Flush - Normal Saline IVF 10 ml Q12HR KALYANI Administration - Exam General Appearance: NAD, awake alert Eye: PERRL ENT: normocephalic atraumatic, moist mucosa Neck: supple, symmetric, no lymphadenopathy Heart: RRR, no murmur, no gallops Respiratory: no rales, normal chest expansion, no tachypnea, rhonchi, wheezes Gastrointestinal: soft, non-tender, no guarding, no rigidity Extremities: no edema Skin: no lesions, no rashes Neurological: cranial nerve grossly intact, no focal deficits Musculoskeletal: generalized weakness Psychiatric: normal affect, normal behavior, A&O x 3 Hosp A/P (1) Bilateral pneumonia Code(s): J18.9 - PNEUMONIA, UNSPECIFIED ORGANISM Status: Acute (2) Acute kidney failure Status: Acute (3) Hypophosphatemia Code(s): E83.39 - OTHER DISORDERS OF PHOSPHORUS METABOLISM Status: Acute (4) UTI (urinary tract infection) Status: Acute (5) Acute metabolic encephalopathy Code(s): G93.41 - METABOLIC ENCEPHALOPATHY Status: Resolved (6) DKA (diabetic ketoacidoses) Code(s): E11.10 - TYPE 2 DIABETES MELLITUS WITH KETOACIDOSIS WITHOUT COMA Status: Resolved Qualifiers: Diabetes mellitus type: type 2 (7) Metabolic acidosis Code(s): E87.2 - ACIDOSIS Status: Resolved (8) Lactic acidosis Code(s): E87.2 - ACIDOSIS Status: Ruled-out (9) Hyperosmolality due to uncontrolled type 1 diabetes mellitus Code(s): E10.69 - TYPE 1 DIABETES MELLITUS WITH OTHER SPECIFIED COMPLICATION; E10.65 - TYPE 1 DIABETES MELLITUS WITH HYPERGLYCEMIA Status: Acute (10) Leucocytosis Code(s): D72.829 - ELEVATED WHITE BLOOD CELL COUNT, UNSPECIFIED Status: Acute (11) SIRS (systemic inflammatory response syndrome) Code(s): R65.10 - SIRS OF NON-INFECTIOUS ORIGIN W/O ACUTE ORGAN DYSFUNCTION Status: Acute (12) DM2 (diabetes mellitus, type 2) Status: Chronic - Plan Plan: medical unit nephrology consultation, recommendations appreciated pulmonology consultation, recommendations appreciated renal function stabilizing, if does not improve may require hemodialysis replace electrolytes as needed I just antibiotics for atypical coverage of bilateral pneumonia long and short acting insulin for glucose control patient has been noncompliant with outpatient regimen resulting in admission with diabetic ketoacidosis and renal failure continue other home medications is able blood pressure control G.I. prophylaxis DVT prophylaxis
[2019-10-11 15:55] LABS: Creatinine, Urine 52.72 mg/dL (47-110)
[2019-10-11] MEDS: Nystatin 500,000 UNITS/5 ML UDCUP SSW SCH ×2 (18:06→20:10)
[2019-10-11] MEDS: Amitriptyline HCl 10 MG TAB PO SCH (20:10)
[2019-10-11] MEDS: Insulin Glargine 25 UNITS in Pre-Filled Syringe 1 EACH SC SCH (20:12)
[2019-10-11] MEDS ORDERED: Insulin Glargine 15 UNITS in Pre-Filled Syringe 1 EACH SC SCH (21:00)
--- NOTE | 2019-10-11 21:04 | PRG ---
DATE OF SERVICE: 10/11/2019 SUBJECTIVE: Ms. Rivera is seen again in followup. We were requested to re-evaluate her. She was seen by my associate on admission when she presented with noncompliance with insulin, hyperglycemia, and metabolic acidosis. This resolved quickly with reinstitution of insulin. She was now noted to be hypoxemic with an abnormal x-ray and I was consulted. Reviewing intake and output, she is at least 8350 mL positive since the . Without a doubt, she had multiple liters of IV resuscitation in the emergency department. Her weight is entered as the same from the to in spite of an 8 L positive fluid gain. She has no complaints. She says she feels fine. She is lying in bed at approximately 20 degrees. OBJECTIVE: VITAL SIGNS: She is afebrile. Heart rate is 93, respiratory rate is 19, oximetry is 93%, and blood pressure 136/75. LUNGS: She has distant crackles on both lungs. HEART: Regular rhythm. ABDOMEN: Soft. EXTREMITIES: With trace edema. LABORATORY DATA: White count 8.9, hemoglobin 13.0, platelets 102,000. Sodium is 136, potassium 3.6, chloride 112, bicarb 20, BUN 47, and creatinine 3.67. Anion gap 14. Glucose was 421 this morning on her chem-7, this has been between 246 and 490 today. Chest radiographs are reviewed. IMPRESSION: Patchy bilateral pulmonary infiltrates, most likely reflective of her volume resuscitation and volume overload in the setting of renal insufficiency. Her BNP was normal. I doubt she has left ventricular systolic dysfunction. She has not had an echocardiogram, so this should be considered. I believe that if she had bilateral pneumonias at this severity, she would be much sicker than she is. Her antibiotics can probably be simplified within the next 24 hours. She is currently on azithromycin and Rocephin. Her diabetes is far better control, but I suspect it is not controlled at home either. I will re-evaluate her in the morning. Job ID: [id number]
[2019-10-12] MEDS: Insulin Regular 300 UNITS/3 ML VIAL SC PRN ×4 (05:38→20:41)
[2019-10-12] MEDS: Lactated Ringer's 1,000 ML IV SCH (05:41)
[2019-10-12] MEDS: Diabetic Tussin 200 MG/10 ML UDCUP PO PRN (05:44)
[2019-10-12] MEDS: cefTRIAXone\\ROCEPHIN 1 GM in Sodium Chloride 0.9% 100 ML IVPB SCH (08:36)
[2019-10-12] MEDS: guaiFENesin ER 600 MG TAB PO SCH ×2 (08:36→20:39)
[2019-10-12] MEDS: Heparin 5,000 UNITS/ML VIAL SC SCH ×3 (08:37→20:40)
[2019-10-12] MEDS: Sodium Bicarbonate Tab 325 MG TAB PO SCH ×3 (08:38→20:39)
[2019-10-12] MEDS: Nystatin 500,000 UNITS/5 ML UDCUP SSW SCH ×4 (08:38→20:39)
[2019-10-12] MEDS: PHOS-NAK 1 PKT PACK PO SCH ×3 (08:38→20:39)
[2019-10-12] MEDS: Insulin Glargine 25 UNITS in Pre-Filled Syringe 1 EACH SC SCH (08:42)
[2019-10-12 09:40] LABS: Albumin 2.7 g/dL (3.5-5.0); Anion Gap 14 mmol/L (10-20); BUN (Urea Nitrogen) 34 mg/dL (9.8-20.1); BUN/Creatinine Ratio 10.56; Calc. Creatinine Clearance 26 mL/min (70-130); Carbon Dioxide 19 mmol/L (22-29); Chloride 114 mmol/L (98-107); Estimated GFR-MDRD 18; Glucose 305 mg/dL (70-105); Potassium 3.1 mmol/L (3.5-5.1); Sodium 144 mmol/L (136-145)
[2019-10-12] MEDS: Azithromycin 500 MG in Sodium Chloride 0.9% 250 ML 250 ML IVPB SCH (11:04)
[2019-10-12] MEDS ORDERED: Furosemide 40 MG/4 ML VIAL SLOW IVP SCH (12:00)
--- NOTE | 2019-10-12 12:10 | PRG ---
DATE OF SERVICE: 10/12/2019 SUBJECTIVE: She is about the same. She says her breathing is not really improved after the diuretics. OBJECTIVE: VITAL SIGNS: On exam, temperature 98, pulse 89, respirations 16, O2 saturation 95% on 3 L, blood pressure 157/95. HEENT: Unremarkable. NECK: No adenopathy or JVD. LUNGS: Crackles bilaterally. CARDIAC: S1, S2. Regular. ABDOMEN: Soft. EXTREMITIES: No edema. LABORATORY DATA: Yesterday had bandemia 25%, has a creatinine of 3.2. ASSESSMENT: 1. Pneumonia versus pulmonary edema. 2. Status post diabetic ketoacidosis. PLAN: 1. Continue the antibiotics. 2. I would give her additional Lasix and stop the IV fluids. Job ID: [id number]
[2019-10-12] MEDS ORDERED: Potassium Chloride 20 MEQ TAB PO SCH (12:45)
--- NOTE | 2019-10-12 13:02 | PRG ---
DATE OF SERVICE: 10/12/2019 SERVICE: Nephrology. SUBJECTIVE: A 53-year-old female, admitted with DKA, seen in followup for acute renal failure. The patient reports persistent of shortness of breath, but denied worsening. Still coughing. Denied leg swelling, nausea, vomiting, or abdominal pain. OBJECTIVE: VITAL SIGNS: Temperature 98.0, pulse 96, respiratory rate 18, SpO2 of 94% on 2 L nasal cannula, blood pressure is 157/95. GENERAL: Fatigued, middle-aged female, in no obvious distress. Afebrile. Anicteric. Acyanotic. HEENT: Normocephalic and atraumatic. Oral mucosa is mildly dry. NECK: Supple with no JVD. CARDIOVASCULAR: Regular rhythm and rate with normal heart sounds 1 and 2. RESPIRATORY: Fair air entry with transmitted breath sounds as well as some crackles, but no rhonchi. Work of breathing is not increased. GI: Full, soft, nontender, nondistended with normal bowel sounds. EXTREMITIES: Grossly normal looking, atraumatic with no edema or erythema. Extremities are rather dry. MINERAL RESOURCES INSPECTOR: Conscious, alert, oriented x3 with appropriate mental status. Cranial nerves 2 through 12 are grossly intact. The patient moves all extremities. DIAGNOSTIC DATA: CBC showed WBC count . Renal function panel showed sodium 144, potassium 3.1, chloride 114, CO2 of 19, BUN 34, creatinine 3.22, glucose 305, calcium 8.0, phosphorus 3.0, albumin 2.7. Of note, creatinine was 3.64 yesterday. BUN also was 47 yesterday. ASSESSMENT: 1. Acute kidney injury: Due to hemodynamic factors related to volume depletion as well as cytokine mediated injury. Improving with IV fluid therapy. 2. Hypokalemia: We will replete with potassium chloride. 3. Metabolic acidosis: Initially due to high anion gap metabolic acidosis, but currently due to hyperchloremic acidosis. Improving with substitution of normal saline with lactated Ringer's. 4. Type 2 diabetes with DKA. Treatment as per primary attending. 5. Acute respiratory failure with hypoxia: Due to pulmonary congestion as well as pneumonitis. Bilateral pneumonia remains a concern. PLAN: 1. We will continue IV fluid therapy at current rate of 100 mL/h. 2. We will replete serum potassium with potassium chloride. 3. We will also get magnesium level and replete if indicated. 4. We will get repeat renal function test in the morning. 5. Further treatment to follow depending on hospital course. 6. We will also get procalcitonin to ascertain pulmonary congestion or pneumonitis or pneumonia. Job ID: [id number]
--- NOTE | 2019-10-12 14:55 | PDOC.HOSPP ---
- Subjective Subjective: Patient still with cough with productive yellow green sputum that now has a blood-tinged to it. Afebrile. Improving on maximal medical therapy. Renal function improving. Blood sugars better controlled. Time was given for questions , all answered in detail. - Objective Vital Signs & Weight: Vital Signs (12 hours) Temp Pulse Resp BP BP Pulse Ox 10/12/19 12:40 98.8 F 86 20 128/75 95 10/12/19 10:35 89 16 95 10/12/19 08:00 95 10/12/19 07:52 98.0 F 96 18 157/95 H 94 L 10/12/19 07:35 90 16 94 L 10/12/19 03:54 98.5 F 83 19 137/83 94 L Weight Admit Weight 178 lb Weight 178 lb 2.136 oz Most Recent Monitor Data Heart Rate from ECG 79 NIBP 125/74 NIBP BP-Mean 91 Respiration from ECG 29 SpO2 96 I&O: 10/11/19 10/12/19 10/13/19 06:59 06:59 06:59 Intake Total 2750 1800 Output Total 400 Balance 2350 1800 Result Diagrams: 10/11/19 05:28 10/12/19 09:05 Additional Labs: Accuchecks 10/12/19 10/12/19 10/11/19 11:29 03:59 19:51 POC Glucose 282 H 189 H 246 H 10/11/19 17:07 POC Glucose 279 H Radiology Reviewed by me: Yes Hospitalist ROS - Review of Systems All other systems reviewed; all pertinent +/- noted in HPI/Subj - Medication Medications: Active Medications Generic Name Dose Route Start Last Admin Trade Name Freq PRN Reason Stop Dose Admin Acetaminophen 650 mg 10/07/19 16:03 10/11/19 20:12 Tylenol PO 650 mg Q4H PRN Administration Headache/Fever/Mild Pain (1-3) Albuterol/Ipratropium 3 ml 10/10/19 15:00 10/12/19 14:32 Duoneb NEB Not Given [id number] KALYANI Amitriptyline HCl 10 mg 10/09/19 21:00 10/11/19 20:10 Elavil PO 10 mg HS KALYANI Administration Guaifenesin 200 mg 10/07/19 16:03 10/12/19 05:44 Robitussin Sf PO 200 mg Q4H PRN Administration Cough Guaifenesin 1,200 mg 10/11/19 09:00 10/12/19 08:36 Mucinex PO 1,200 mg Q12HR KALYANI Administration Heparin Sodium (Porcine) 5,000 units 10/07/19 21:00 10/12/19 08:37 Heparin SC Not Given TID KALYANI Potassium Phosphate 9 mmol/ 103 mls @ 25.75 mls/hr 10/09/19 05:59 10/09/19 06 :28 Sodium Chloride IVPB 103 mls ASDIR PRN Administration Phosphate 1.0-1.8 Ceftriaxone Sodium 1 gm/ 100 mls @ 200 mls/hr 10/09/19 08:00 10/12/19 08:36 Sodium Chloride IVPB 100 mls Q24HR KALYANI Administration Azithromycin 500 mg/ Sodium 250 mls @ 250 mls/hr 10/10/19 12:00 10/12/19 11: 04 Chloride IVPB 250 mls Q24HR KALYANI Administration Insulin Human Regular 0 units 10/08/19 08:20 10/12/19 12:23 Humulin R SC 9 unit .AGGRESSIVE SLIDING PRN Administration Aggressive Correctional Scale Insulin Human Regular 0 units 10/08/19 08:20 10/11/19 20:15 Humulin R SC 2 unit .BEDTIME SLIDING SC PRN Administration Bedtime Correctional Scale Miscellaneous Medication 1 pkt 10/08/19 09:00 10/12/19 08:38 Phos-Nak PO 1 pkt TID KALYANI Administration Nystatin 500,000 units 10/11/19 17:00 10/12/19 11:09 Mycostatin SSW 500,000 units QID KALYANI Administration Ondansetron HCl 4 mg 10/07/19 16:03 10/09/19 12:33 Zofran Odt PO 4 mg Q6H PRN Administration Nausea/Vomiting Ondansetron HCl 4 mg 10/07/19 16:03 10/12/19 05:40 Zofran IVP 4 mg Q6H PRN Administration Nausea/Vomiting Sodium Bicarbonate 650 mg 10/10/19 15:00 10/12/19 08:38 Bicarbonate, Sodium PO 650 mg TID KALYANI Administration Sodium Chloride 10 ml 10/10/19 09:00 10/12/19 08:39 Flush - Normal Saline IVF 10 ml Q12HR KALYANI Administration - Exam General Appearance: NAD, awake alert Eye: anicteric sclera ENT: normocephalic atraumatic Neck: supple, symmetric, no JVD Heart: no murmur, no gallops, no rubs Respiratory: no rales, normal chest expansion, no tachypnea, rhonchi, wheezes Gastrointestinal: soft, non-tender, no guarding, no rigidity Extremities: no edema Skin: no rashes Neurological: cranial nerve grossly intact, normal sensation to touch, no focal deficits Musculoskeletal: generalized weakness Psychiatric: normal affect, normal behavior, A&O x 3 Hosp A/P (1) Bilateral pneumonia Code(s): J18.9 - PNEUMONIA, UNSPECIFIED ORGANISM Status: Acute (2) Acute kidney failure Status: Acute (3) Hypophosphatemia Code(s): E83.39 - OTHER DISORDERS OF PHOSPHORUS METABOLISM Status: Acute (4) UTI (urinary tract infection) Status: Acute (5) Acute metabolic encephalopathy Code(s): G93.41 - METABOLIC ENCEPHALOPATHY Status: Resolved (6) DKA (diabetic ketoacidoses) Code(s): E11.10 - TYPE 2 DIABETES MELLITUS WITH KETOACIDOSIS WITHOUT COMA Status: Resolved Qualifiers: Diabetes mellitus type: type 2 (7) Metabolic acidosis Code(s): E87.2 - ACIDOSIS Status: Resolved (8) Lactic acidosis Code(s): E87.2 - ACIDOSIS Status: Ruled-out (9) Hyperosmolality due to uncontrolled type 1 diabetes mellitus Code(s): E10.69 - TYPE 1 DIABETES MELLITUS WITH OTHER SPECIFIED COMPLICATION; E10.65 - TYPE 1 DIABETES MELLITUS WITH HYPERGLYCEMIA Status: Acute (10) Leucocytosis Code(s): D72.829 - ELEVATED WHITE BLOOD CELL COUNT, UNSPECIFIED Status: Acute (11) SIRS (systemic inflammatory response syndrome) Code(s): R65.10 - SIRS OF NON-INFECTIOUS ORIGIN W/O ACUTE ORGAN DYSFUNCTION Status: Acute (12) DM2 (diabetes mellitus, type 2) Status: Chronic - Plan Plan: medical unit nephrology consultation, recommendations appreciated pulmonology consultation, recommendations appreciated renal function stabilizing, if does not improve may require hemodialysis replace electrolytes as needed adjust antibiotics for atypical coverage of bilateral pneumonia Nystatin swish and swallow adjust long and short acting insulin for glucose control patient has been noncompliant with outpatient regimen resulting in admission with diabetic ketoacidosis and renal failure continue other home medications is able blood pressure control G.I. prophylaxis DVT prophylaxis
[2019-10-12] MEDS: Amitriptyline HCl 10 MG TAB PO SCH (20:39)
[2019-10-12] MEDS: Acetaminophen 325 MG TAB PO PRN (20:40)
[2019-10-12] MEDS: Insulin Glargine 30 UNITS in Pre-Filled Syringe 1 EACH SC SCH (20:40)
[2019-10-13] MEDS: Diabetic Tussin 200 MG/10 ML UDCUP PO PRN (05:39)
[2019-10-13] MEDS: Acetaminophen 325 MG TAB PO PRN (05:49)
[2019-10-13 06:54] LABS: Albumin 2.8 g/dL (3.5-5.0); Anion Gap 14 mmol/L (10-20); BUN (Urea Nitrogen) 29 mg/dL (9.8-20.1); BUN/Creatinine Ratio 9.83; Calc. Creatinine Clearance 28 mL/min (70-130); Calcium 8.1 mg/dL (7.8-10.44); Carbon Dioxide 22 mmol/L (22-29); Chloride 113 mmol/L (98-107); Estimated GFR-MDRD 20; Glucose 171 mg/dL (70-105); Sodium 146 mmol/L (136-145)
[2019-10-13 06:57] LABS: Potassium 2.9 mmol/L (3.5-5.1)
--- NOTE | 2019-10-13 08:01 | RAD ---
EXAM: Single view of the chest HISTORY: Pneumonia COMPARISON: 10/07/2019 FINDINGS: Single view of the chest shows a normal sized cardiomediastinal silhouette. Multifocal airs pace opacities are seen scattered throughout the lungs consistent with pneumonia. The bones are unremarkable. IMPRESSION: Multifocal pneumonia
[2019-10-13] MEDS: guaiFENesin ER 600 MG TAB PO SCH ×2 (08:16→20:23)
[2019-10-13] MEDS: Sodium Bicarbonate Tab 325 MG TAB PO SCH ×3 (08:16→20:24)
[2019-10-13] MEDS: cefTRIAXone\\ROCEPHIN 1 GM in Sodium Chloride 0.9% 100 ML IVPB SCH (08:16)
[2019-10-13] MEDS: Insulin Glargine 30 UNITS in Pre-Filled Syringe 1 EACH SC SCH ×2 (08:17→20:29)
[2019-10-13] MEDS: Heparin 5,000 UNITS/ML VIAL SC SCH ×3 (08:17→20:29)
[2019-10-13] MEDS: Nystatin 500,000 UNITS/5 ML UDCUP SSW SCH ×4 (08:17→20:24)
[2019-10-13] MEDS: PHOS-NAK 1 PKT PACK PO SCH ×3 (08:17→20:24)
[2019-10-13] MEDS: Potassium Chloride 20 MEQ TAB PO SCH ×2 (09:31→12:53)
--- NOTE | 2019-10-13 10:09 | CT ---
EXAM: CT of the chest without contrast HISTORY: Multifocal infiltrates versus edema COMPARISON: None TECHNIQUE: Multiple contiguous axial images were obtained in a CT the chest without contrast. Coronal and sagittal reformats were performed. FINDINGS: HEART: Normal in size without focal cardiac abnormality MEDIASTINUM: No hilar or mediastinal lymphadenopathy. Evaluation of the mediastinum is limited withou t IV contrast. LUNGS: There are multifocal peripheral and hilar infiltrates with sparing of the midportion of the larissa ngs. PLEURAL SPACE: No pneumothorax or pleural effusion. CHEST WALL SOFT TISSUES: Unremarkable OSSEOUS STRUCTURES: Degenerative changes in the spine. VISUALIZED SUBDIAPHRAGMATIC STRUCTURES: Unremarkable IMPRESSION: Multifocal infiltrates favor an infectious process rather than pulmonary edema as the heart is normal in size.
[2019-10-13] MEDS: Azithromycin 500 MG in Sodium Chloride 0.9% 250 ML 250 ML IVPB SCH (12:53)
[2019-10-13] MEDS: Potassium Citrate 10 MEQ TAB PO SCH ×2 (12:53→16:53)
[2019-10-13] MEDS: Insulin Regular 300 UNITS/3 ML VIAL SC PRN ×2 (12:54→16:53)
--- NOTE | 2019-10-13 12:58 | PDOC.HOSPP ---
- Subjective Subjective: Seen and examined. Patient with cough with productive yellow green sputum continues. Still with blood-tinged in sputum. Went down for CT scan, with multifocal bilateral pneumonia. Patient is saturating well on low-flow nasal cannula. Patient is able to get up and go to the commode and walks around the halls with assistance and oxygen. Improving on maximal medical therapy. - Objective Vital Signs & Weight: Vital Signs (12 hours) Temp Pulse Resp BP Pulse Ox 10/13/19 10:30 91 12 93 L 10/13/19 08:34 95 10/13/19 08:00 93 L 10/13/19 07:57 99.3 F 91 20 136/79 93 L 10/13/19 06:48 88 12 93 L 10/13/19 05:00 99.0 F 97 20 152/93 H 93 L Weight Admit Weight 178 lb Weight 178 lb 2.136 oz Most Recent Monitor Data Heart Rate from ECG 79 NIBP 125/74 NIBP BP-Mean 91 Respiration from ECG 29 SpO2 96 I&O: 10/12/19 10/13/19 10/14/19 06:59 06:59 06:59 Intake Total 1800 710 Balance 1800 710 Result Diagrams: 10/11/19 05:28 10/13/19 06:13 Additional Labs: Accuchecks 10/13/19 10/13/19 10/12/19 11:43 04:45 19:57 POC Glucose 229 H 138 H 278 H 10/12/19 16:57 POC Glucose 272 H Radiology Reviewed by me: Yes Hospitalist ROS - Review of Systems All other systems reviewed; all pertinent +/- noted in HPI/Subj - Medication Medications: Active Medications Generic Name Dose Route Start Last Admin Trade Name Freq PRN Reason Stop Dose Admin Acetaminophen 650 mg 10/07/19 16:03 10/13/19 05:49 Tylenol PO 650 mg Q4H PRN Administration Headache/Fever/Mild Pain (1-3) Albuterol/Ipratropium 3 ml 10/10/19 15:00 10/13/19 10:30 Duoneb NEB 3 ml [id number] KALYANI Administration Amitriptyline HCl 10 mg 10/09/19 21:00 10/12/19 20:39 Elavil PO 10 mg HS KALYANI Administration Guaifenesin 200 mg 10/07/19 16:03 10/13/19 05:39 Robitussin Sf PO 200 mg Q4H PRN Administration Cough Guaifenesin 1,200 mg 10/11/19 09:00 10/13/19 08:16 Mucinex PO 1,200 mg Q12HR KALYANI Administration Heparin Sodium (Porcine) 5,000 units 10/07/19 21:00 10/13/19 08:17 Heparin SC Not Given TID KALYANI Potassium Phosphate 9 mmol/ 103 mls @ 25.75 mls/hr 10/09/19 05:59 10/09/19 06 :28 Sodium Chloride IVPB 103 mls ASDIR PRN Administration Phosphate 1.0-1.8 Ceftriaxone Sodium 1 gm/ 100 mls @ 200 mls/hr 10/09/19 08:00 10/13/19 08:16 Sodium Chloride IVPB 100 mls Q24HR KALYANI Administration Azithromycin 500 mg/ Sodium 250 mls @ 250 mls/hr 10/10/19 12:00 10/12/19 11: 04 Chloride IVPB 250 mls Q24HR KALYANI Administration Insulin Glargine 30 units/ 0.3 mls @ 1 mls/hr 10/12/19 21:00 10/13/19 08:17 Miscellaneous Medication SC 0.3 mls BID KALYANI Administration Insulin Human Regular 0 units 10/08/19 08:20 10/12/19 17:52 Humulin R SC 9 unit .AGGRESSIVE SLIDING PRN Administration Aggressive Correctional Scale Insulin Human Regular 0 units 10/08/19 08:20 10/12/19 20:41 Humulin R SC 3 unit .BEDTIME SLIDING SC PRN Administration Bedtime Correctional Scale Miscellaneous Medication 1 pkt 10/08/19 09:00 10/13/19 08:17 Phos-Nak PO 1 pkt TID KALYANI Administration Nystatin 500,000 units 10/11/19 17:00 10/13/19 08:17 Mycostatin SSW 500,000 units QID KALYANI Administration Ondansetron HCl 4 mg 10/07/19 16:03 10/09/19 12:33 Zofran Odt PO 4 mg Q6H PRN Administration Nausea/Vomiting Ondansetron HCl 4 mg 10/07/19 16:03 10/12/19 05:40 Zofran IVP 4 mg Q6H PRN Administration Nausea/Vomiting Potassium Chloride 40 meq 10/13/19 09:30 10/13/19 09:31 K-Dur PO 10/13/19 13:31 40 meq Q4H KALYANI Administration Sodium Bicarbonate 650 mg 10/10/19 15:00 10/13/19 08:16 Bicarbonate, Sodium PO 650 mg TID KALYANI Administration Sodium Chloride 10 ml 10/10/19 09:00 10/13/19 08:18 Flush - Normal Saline IVF 10 ml Q12HR KALYANI Administration - Exam General Appearance: NAD, awake alert Eye: anicteric sclera ENT: normocephalic atraumatic, moist mucosa Neck: supple, symmetric, no lymphadenopathy Heart: no murmur, no gallops, no rubs Respiratory: no rales, normal chest expansion, no tachypnea, rhonchi (Some improvement), wheezes Gastrointestinal: soft, no bruit, no guarding, no rigidity Extremities: no edema Skin: no lesions, no rashes Neurological: cranial nerve grossly intact, no focal deficits Musculoskeletal: generalized weakness Psychiatric: normal affect, normal behavior, A&O x 3 Hosp A/P (1) Bilateral pneumonia Code(s): J18.9 - PNEUMONIA, UNSPECIFIED ORGANISM Status: Acute (2) Acute kidney failure Status: Acute (3) Hypophosphatemia Code(s): E83.39 - OTHER DISORDERS OF PHOSPHORUS METABOLISM Status: Acute (4) UTI (urinary tract infection) Status: Acute (5) Acute metabolic encephalopathy Code(s): G93.41 - METABOLIC ENCEPHALOPATHY Status: Resolved (6) DKA (diabetic ketoacidoses) Code(s): E11.10 - TYPE 2 DIABETES MELLITUS WITH KETOACIDOSIS WITHOUT COMA Status: Resolved Qualifiers: Diabetes mellitus type: type 2 (7) Metabolic acidosis Code(s): E87.2 - ACIDOSIS Status: Resolved (8) Lactic acidosis Code(s): E87.2 - ACIDOSIS Status: Ruled-out (9) Hyperosmolality due to uncontrolled type 1 diabetes mellitus Code(s): E10.69 - TYPE 1 DIABETES MELLITUS WITH OTHER SPECIFIED COMPLICATION; E10.65 - TYPE 1 DIABETES MELLITUS WITH HYPERGLYCEMIA Status: Acute (10) Leucocytosis Code(s): D72.829 - ELEVATED WHITE BLOOD CELL COUNT, UNSPECIFIED Status: Acute (11) SIRS (systemic inflammatory response syndrome) Code(s): R65.10 - SIRS OF NON-INFECTIOUS ORIGIN W/O ACUTE ORGAN DYSFUNCTION Status: Acute (12) DM2 (diabetes mellitus, type 2) Status: Chronic - Plan Plan: medical unit nephrology consultation, recommendations appreciated pulmonology consultation, recommendations appreciated CT chest noted Pulmonary specific ABX Nystatin swish and swallow renal function stabilizing, with help from nephrology replace electrolytes as needed adjust long and short acting insulin for glucose control patient has been noncompliant with outpatient regimen resulting in admission with diabetic ketoacidosis and renal failure continue other home medications is able blood pressure control G.I. prophylaxis DVT prophylaxis
[2019-10-13] MEDS: Piperacillin/Tazobactam 2.25 GM in Sodium Chloride 0.9% 100 ML IVPB SCH ×2 (15:56→22:47)
[2019-10-13] MEDS: Vancomycin HCl 500 MG in Sodium Chloride 0.9% 100 ML IVPB SCH (15:57)
--- NOTE | 2019-10-13 16:11 | PRG ---
DATE OF SERVICE: 10/13/2019 SUBJECTIVE: The patient is complaining of cough and mucus production. OBJECTIVE: VITAL SIGNS: Her temperature is 99.3, pulse 92, respirations 12, O2 saturation 93% on 3 L. HEENT: Unremarkable. NECK: No adenopathy or JVD. LUNGS: Coarse rhonchi. CARDIAC: S1 and S2. Regular. ABDOMEN: Soft. EXTREMITIES: No edema. LABORATORY DATA: Reviewed chest x-ray and CT of the chest. CT shows multifocal infiltrative changes. ASSESSMENT: Pneumonia versus pulmonary edema. This pneumonia does not seem to be responding to the current antibiotics. PLAN: 1. I will change her over to Zosyn and vancomycin. Repeat her cultures. Additionally, put her on some low-dose corticosteroids and see if this helps. 2. We would avoid aggressive hydration in this patient. 3. Potassium needs to be replaced if that has not already been done. Job ID: [id number]
--- NOTE | 2019-10-13 16:28 | PRG ---
DATE OF SERVICE: 10/13/2019 SERVICE: Nephrology. SUBJECTIVE: A 53-year-old female with diabetes, seen in followup for acute renal failure. The patient was admitted due to DKA and subsequently developed worsening shortness of breath as well as cough with sputum production. She was started on IV fluid with improvement in renal function. However, there is a concern as to whether she has multifocal pneumonia or pulmonary congestion. Denied fever, nausea, vomiting. However oral intake and appetite remained poor. OBJECTIVE: VITAL SIGNS: Temperature 99.3, pulse 91, respiratory rate 20, SpO2 of 93% on 2 L nasal cannula, and blood pressure is 136/79. GENERAL: Acutely ill-looking female, in no obvious distress. Fatigued, but afebrile and anicteric. HEENT: Normocephalic, atraumatic. Oral mucosa is dry. NECK: Supple with no JVD. CARDIOVASCULAR: Regular rhythm and rate with normal heart sounds one and two. RESPIRATORY: Fair air entry bilaterally with coarse crackles bilaterally. No rhonchi or use of accessory muscles appreciated. GI: Full, soft, nontender, nondistended with normal bowel sounds. EXTREMITIES: Grossly normal looking, but dry. No edema or erythema. ACID WASH OPERATOR: Conscious, alert, oriented x3 with appropriate mental status. Cranial nerves 2 through 12 are grossly intact. DIAGNOSTIC DATA: Renal function panel showed sodium 146, potassium 2.9, chloride 113, CO2 of 22, BUN 29, creatinine 2.95, glucose 171, calcium 8.1, phosphorus 3.0, albumin 2.8. Magnesium is 1.8. ASSESSMENT: 1. Acute kidney injury: This is due to hemodynamic factors related to volume depletion as well as cytokine mediated injury related to sepsis. 2. Chronic kidney disease stage 3/4: Due to diabetic nephropathy. 3. Volume depletion. 4. Multifocal pneumonia. 5. Hyponatremia: Due to free water deficit from poor oral intake. 6. Hypokalemia. 7. Hyperchloremic metabolic acidosis. 8. Uncontrolled diabetes with diabetic ketoacidosis. 9. Physical deconditioning. PLAN: 1. We will get CT scan of the chest to rule in or rule out multifocal pneumonia or pulmonary congestion. If pulmonary congestion is ruled out, we will start the patient on IV fluid therapy. 2. We will replete serum potassium with potassium chloride. 3. We will also start the patient on sodium bicarbonate tablet given hyperchloremic acidosis. 4. We will get serum magnesium and replete if indicated. 5. We will recheck renal function tests in the morning. 6. Further treatment as per primary attending. Job ID: [id number]
[2019-10-13] MEDS: Lactated Ringer's 1,000 ML IV SCH (16:53)
[2019-10-13] MEDS: Amitriptyline HCl 10 MG TAB PO SCH (20:23)
[2019-10-13] MEDS: methylPREDNISolone Sod Succ 40 MG VIAL IVP SCH (20:24)
[2019-10-14] MEDS: Lactated Ringer's 1,000 ML IV SCH ×3 (03:03→23:48)
[2019-10-14] MEDS: Piperacillin/Tazobactam 2.25 GM in Sodium Chloride 0.9% 100 ML IVPB SCH ×3 (06:27→23:47)
[2019-10-14] MEDS: Insulin Regular 300 UNITS/3 ML VIAL SC PRN ×4 (06:28→20:44)
[2019-10-14 06:33] LABS: Albumin 2.7 g/dL (3.5-5.0); Anion Gap 12 mmol/L (10-20); BUN (Urea Nitrogen) 24 mg/dL (9.8-20.1); BUN/Creatinine Ratio 9.38; Calc. Creatinine Clearance 33 mL/min (70-130); Calcium 7.9 mg/dL (7.8-10.44); Carbon Dioxide 22 mmol/L (22-29); Chloride 110 mmol/L (98-107); Estimated GFR-MDRD 24; Glucose 314 mg/dL (70-105); Potassium 3.9 mmol/L (3.5-5.1); Sodium 140 mmol/L (136-145)
--- NOTE | 2019-10-14 07:21 | PRG ---
DATE OF SERVICE: 10/14/2019 SERVICE: Nephrology. SUBJECTIVE: A 53-year-old female admitted due to diabetic ketoacidosis and malaise. Found to have multifocal pneumonia. Nephrology following the patient for acute on chronic renal failure. Reports feeling better. Oral intake, however, is still suboptimal. No fever. Reported some loose stool yesterday after meal check. OBJECTIVE: VITAL SIGNS: Temperature 99.3, pulse 98, respiratory rate 16, SpO2 of 98% on 3 L nasal cannula, and blood pressure is 125/88. GENERAL: Comfortable female, in no obvious distress. Afebrile. Anicteric. Acyanotic. HEENT: Normocephalic, atraumatic. Oral mucosa is moist. NECK: Supple with no JVD. CARDIOVASCULAR: Regular rhythm and rate with normal heart sounds 1 and 2. RESPIRATORY: Fair air entry bilaterally with scattered crackles. No rhonchi or use of accessory muscles was appreciated. GASTROINTESTINAL: Full, soft, nontender, and nondistended with normal bowel sounds. EXTREMITIES: Grossly normal looking, atraumatic with no edema or erythema. Distal pulses are palpable. CENTRAL NERVOUS SYSTEM: Conscious and alert and oriented x3 with appropriate mental status. Cranial nerves II through XII are grossly intact. DIAGNOSTIC DATA: Renal function panel today showed sodium 140, potassium 3.9, chloride 110, CO2 of 22, BUN 24, creatinine 2.56, glucose 314, calcium 7.9, phosphorus 3.0, and albumin 2.7. ASSESSMENT: 1. Acute kidney injury: Due to hemodynamic factors related to volume depletion from poor oral intake as well as cytokine-mediated injury. The patient has history of chronic kidney disease. 2. Chronic kidney disease, stage 3. 3. History of hypertension. 4. Hypokalemia: Repleted with potassium chloride. Now getting potassium-containing IV fluid. 5. Hypophosphatemia: Repleted. Due to poor oral intake. 6. Hyperkalemia: Due to metabolic acidosis, resolved. 7. Metabolic acidosis. Improved. 8. Multifocal pneumonia: Treatment as per Pulmonary and primary attending. 9. Volume depletion: Due to poor oral intake and increased insensible loss due to multifocal pneumonia. PLAN: 1. Continue antibiotics as per primary attending and Pulmonary and Critical Care. 2. We will also continue IV fluid at current rate of LR 100 mL/h. 3. We will discontinue further oral potassium supplementation as patient is getting some potassium in lactated Ringer's. 4. Diabetic management as per primary attending. 5. We will recheck renal function and CBC in the morning. Further treatment to follow depending on hospital course. Continue dietary supplementation as well. [place] oral intake advised. Job ID: [id number]
[2019-10-14] MEDS: Insulin Glargine 30 UNITS in Pre-Filled Syringe 1 EACH SC SCH (08:29)
[2019-10-14] MEDS: Nystatin 500,000 UNITS/5 ML UDCUP SSW SCH ×4 (08:30→20:43)
[2019-10-14] MEDS: PHOS-NAK 1 PKT PACK PO SCH ×3 (08:30→20:43)
[2019-10-14] MEDS: Sodium Bicarbonate Tab 325 MG TAB PO SCH ×3 (08:30→20:43)
[2019-10-14] MEDS: guaiFENesin ER 600 MG TAB PO SCH ×2 (08:30→20:38)
[2019-10-14] MEDS: methylPREDNISolone Sod Succ 40 MG VIAL IVP SCH ×2 (08:31→20:43)
[2019-10-14] MEDS: Heparin 5,000 UNITS/ML VIAL SC SCH ×3 (08:35→20:38)
--- NOTE | 2019-10-14 13:19 | PDOC.HOSPP ---
- Subjective Subjective: Patient continues to improve. I think she is turned the corner with can lung condition and she is coughing and producing less sputum. Renal function improving. Diabetes better controlled. Patient improving on all accounts. I encourage her to keep up her physical strength and continue walking around the halls. Time was given for questions, all answered in detail. - Objective Vital Signs & Weight: Vital Signs (12 hours) Temp Pulse Resp BP Pulse Ox 10/14/19 10:30 96 16 95 10/14/19 08:00 98.7 F 87 20 114/64 96 10/14/19 07:59 103 H 18 93 L 10/14/19 07:48 93 L Weight Admit Weight 178 lb Weight 178 lb 2.136 oz Most Recent Monitor Data Heart Rate from ECG 79 NIBP 125/74 NIBP BP-Mean 91 Respiration from ECG 29 SpO2 96 I&O: 10/13/19 10/14/19 10/15/19 06:59 06:59 06:59 Intake Total 710 1550 Balance 710 1550 Result Diagrams: 10/11/19 05:28 10/14/19 05:59 Additional Labs: Accuchecks 10/14/19 10/14/19 10/13/19 11:24 05:57 20:17 POC Glucose 339 H 292 H 285 H 10/13/19 16:15 POC Glucose 179 H Radiology Reviewed by me: Yes Hospitalist ROS - Review of Systems All other systems reviewed; all pertinent +/- noted in HPI/Subj - Medication Medications: Active Medications Generic Name Dose Route Start Last Admin Trade Name Freq PRN Reason Stop Dose Admin Acetaminophen 650 mg 10/07/19 16:03 10/13/19 05:49 Tylenol PO 650 mg Q4H PRN Administration Headache/Fever/Mild Pain (1-3) Albuterol/Ipratropium 3 ml 10/10/19 15:00 10/14/19 10:30 Duoneb NEB 3 ml [id number] KALYANI Administration Amitriptyline HCl 10 mg 10/09/19 21:00 10/13/19 20:23 Elavil PO 10 mg HS KALYANI Administration Guaifenesin 200 mg 10/07/19 16:03 10/13/19 05:39 Robitussin Sf PO 200 mg Q4H PRN Administration Cough Guaifenesin 1,200 mg 10/11/19 09:00 10/14/19 08:30 Mucinex PO 1,200 mg Q12HR KALYANI Administration Heparin Sodium (Porcine) 5,000 units 10/07/19 21:00 10/14/19 08:35 Heparin SC 5,000 units TID KALYANI Administration Potassium Phosphate 9 mmol/ 103 mls @ 25.75 mls/hr 10/09/19 05:59 10/09/19 06 :28 Sodium Chloride IVPB 103 mls ASDIR PRN Administration Phosphate 1.0-1.8 Piperacillin Sod/Tazobactam 100 mls @ 200 mls/hr 10/13/19 15:00 10/14/19 06: 27 Sod 2.25 gm/ Sodium Chloride IVPB 100 mls 0700,1500,2300 KALYANI Administration Vancomycin HCl 500 mg/ Sodium 100 mls @ 100 mls/hr 10/13/19 16:00 10/13/19 15 :57 Chloride IVPB 100 mls 1600 KALYANI Administration Lactated Ringer's 1,000 mls @ 100 mls/hr 10/13/19 16:15 10/14/19 11:39 Lactated Ringer's IV 1,000 mls .Q10H KALYANI Administration Insulin Human Regular 0 units 10/08/19 08:20 10/14/19 11:40 Humulin R SC 11 unit .AGGRESSIVE SLIDING PRN Administration Aggressive Correctional Scale Insulin Human Regular 0 units 10/08/19 08:20 10/12/19 20:41 Humulin R SC 3 unit .BEDTIME SLIDING SC PRN Administration Bedtime Correctional Scale Loratadine 10 mg 10/07/19 16:03 10/13/19 22:53 Claritin PO 10 mg DAILYPRN PRN Administration Sinus Symptoms Methylprednisolone Sodium Succinate 20 mg 10/13/19 21:00 10/14/19 08:31 Solu-Medrol IVP 20 mg BID KALYANI Administration Miscellaneous Medication 1 pkt 10/08/19 09:00 10/14/19 08:30 Phos-Nak PO 1 pkt TID KAYLANI Administration Nystatin 500,000 units 10/11/19 17:00 10/14/19 11:39 Mycostatin SSW 500,000 units QID KALYANI Administration Ondansetron HCl 4 mg 10/07/19 16:03 10/09/19 12:33 Zofran Odt PO 4 mg Q6H PRN Administration Nausea/Vomiting Ondansetron HCl 4 mg 10/07/19 16:03 10/12/19 05:40 Zofran IVP 4 mg Q6H PRN Administration Nausea/Vomiting Sodium Bicarbonate 650 mg 10/10/19 15:00 10/14/19 08:30 Bicarbonate, Sodium PO 650 mg TID KALYANI Administration Sodium Chloride 10 ml 10/10/19 09:00 10/14/19 08:31 Flush - Normal Saline IVF 10 ml Q12HR KALYANI Administration - Exam General Appearance: awake alert Eye: PERRL ENT: no oropharyngeal lesions, moist mucosa Neck: symmetric Heart: no murmur, no gallops, no rubs Respiratory: no rales, normal chest expansion, no tachypnea, rhonchi, wheezes Gastrointestinal: soft, non-tender, no guarding, no rigidity Extremities: no edema Skin: no lesions, no rashes Neurological: cranial nerve grossly intact, no focal deficits Musculoskeletal: generalized weakness Psychiatric: normal affect, A&O x 3 Hosp A/P (1) Bilateral pneumonia Code(s): J18.9 - PNEUMONIA, UNSPECIFIED ORGANISM Status: Acute (2) Acute kidney failure Status: Acute (3) Hypophosphatemia Code(s): E83.39 - OTHER DISORDERS OF PHOSPHORUS METABOLISM Status: Acute (4) UTI (urinary tract infection) Status: Acute (5) Acute metabolic encephalopathy Code(s): G93.41 - METABOLIC ENCEPHALOPATHY Status: Resolved (6) DKA (diabetic ketoacidoses) Code(s): E11.10 - TYPE 2 DIABETES MELLITUS WITH KETOACIDOSIS WITHOUT COMA Status: Resolved Qualifiers: Diabetes mellitus type: type 2 (7) Metabolic acidosis Code(s): E87.2 - ACIDOSIS Status: Resolved (8) Lactic acidosis Code(s): E87.2 - ACIDOSIS Status: Ruled-out (9) Hyperosmolality due to uncontrolled type 1 diabetes mellitus Code(s): E10.69 - TYPE 1 DIABETES MELLITUS WITH OTHER SPECIFIED COMPLICATION; E10.65 - TYPE 1 DIABETES MELLITUS WITH HYPERGLYCEMIA Status: Acute (10) Leucocytosis Code(s): D72.829 - ELEVATED WHITE BLOOD CELL COUNT, UNSPECIFIED Status: Acute (11) SIRS (systemic inflammatory response syndrome) Code(s): R65.10 - SIRS OF NON-INFECTIOUS ORIGIN W/O ACUTE ORGAN DYSFUNCTION Status: Acute (12) DM2 (diabetes mellitus, type 2) Status: Chronic - Plan Plan: medical unit nephrology consultation, recommendations appreciated pulmonology consultation, recommendations appreciated CT chest noted Pulmonary specific ABX Nystatin swish and swallow renal function stabilizing, with help from nephrology replace electrolytes as needed adjust long and short acting insulin for glucose control patient has been noncompliant with outpatient regimen resulting in admission with diabetic ketoacidosis and renal failure continue other home medications is able blood pressure control G.I. prophylaxis DVT prophylaxis Disposition: Improving on maximum medical therapy. Likely home in the next 48 hours if continues to improve
[2019-10-14] MEDS: Vancomycin HCl 500 MG in Sodium Chloride 0.9% 100 ML IVPB SCH (15:20)
--- NOTE | 2019-10-14 15:50 | PRG ---
DATE OF SERVICE: 10/14/2019 SUBJECTIVE: She feels better. No acute complaints. OBJECTIVE: VITAL SIGNS: Temperature 98.7, pulse 85, respirations 16, O2 saturation 96% on 2 L, and blood pressure 114/64. HEENT: Unremarkable. NECK: No adenopathy or JVD. LUNGS: Clear anteriorly. CARDIAC: S1, S2 regular. ABDOMEN: Soft. EXTREMITIES: No edema. ASSESSMENT: Pneumonia, responding to change in antibiotics. PLAN: Continue Zosyn and vancomycin. Increase activity as tolerated. Job ID: [id number]
[2019-10-14] MEDS: Amitriptyline HCl 10 MG TAB PO SCH (20:38)
[2019-10-14] MEDS: Insulin Glargine 35 UNITS in Pre-Filled Syringe 1 EACH SC SCH (20:42)
[2019-10-15 05:48] LABS: #Lymphocytes 0.9 thou/uL (1.20-3.40); #Monocytes 0.5 thou/uL (0.11-0.59); #Neutrophils 9.5 thou/uL (1.40-6.50); %Basophils 0.1 % (0.0-1.0); %Eosinophils 0.1 % (0.0-10.0); %Lymphocytes 8.5 % (21.0-51.0); %Monocytes 4.2 % (0.0-10.0); %Neutrophils 87.1 % (42.0-75.0); Hemoglobin 10.5 g/dL (12.0-16.0); Mean Corpuscular HGB CONC 31.1 g/dL (32.0-36.0); Mean Corpuscular Hemoglobin 25.7 pg (27.0-31.0); Mean Corpuscular Volume 82.5 fL (78.0-98.0); Mean Platelet Volume 8.1 fL (7.4-10.4); Platelet Count 381 thou/uL (130-400); RBC Distribution Width 15.2 % (11.5-14.5); Red Blood Cell (RBC) Count 4.09 mill/uL (4.20-5.40); White Blood Cell (WBC) Count 10.9 thou/uL (4.8-10.8)
[2019-10-15 06:09] LABS: Albumin 2.5 g/dL (3.5-5.0); Anion Gap 15 mmol/L (10-20); BUN (Urea Nitrogen) 22 mg/dL (9.8-20.1); BUN/Creatinine Ratio 10.05; Calc. Creatinine Clearance 38 mL/min (70-130); Calcium 8.1 mg/dL (7.8-10.44); Carbon Dioxide 22 mmol/L (22-29); Chloride 112 mmol/L (98-107); Estimated GFR-MDRD 29; Glucose 81 mg/dL (70-105); Potassium 3.7 mmol/L (3.5-5.1); Sodium 145 mmol/L (136-145)
[2019-10-15] MEDS: Piperacillin/Tazobactam 2.25 GM in Sodium Chloride 0.9% 100 ML IVPB SCH ×3 (06:11→22:33)
[2019-10-15] MEDS: Lactated Ringer's 1,000 ML IV SCH ×2 (08:15→15:46)
[2019-10-15] MEDS: guaiFENesin ER 600 MG TAB PO SCH ×2 (08:34→20:45)
[2019-10-15] MEDS: Sodium Bicarbonate Tab 325 MG TAB PO SCH ×3 (08:34→20:45)
[2019-10-15] MEDS: methylPREDNISolone Sod Succ 40 MG VIAL IVP SCH ×2 (08:35→20:46)
[2019-10-15] MEDS: PHOS-NAK 1 PKT PACK PO SCH ×3 (08:35→20:45)
[2019-10-15] MEDS: Heparin 5,000 UNITS/ML VIAL SC SCH ×3 (08:38→20:45)
[2019-10-15] MEDS: Insulin Glargine 35 UNITS in Pre-Filled Syringe 1 EACH SC SCH ×2 (08:39→20:46)
[2019-10-15] MEDS: Nystatin 500,000 UNITS/5 ML UDCUP SSW SCH ×4 (09:00→20:47)
--- NOTE | 2019-10-15 09:00 | PRG ---
DATE OF SERVICE: 10/15/2019 SUBJECTIVE: The patient feels like that she is breathing better. Things are starting to break up in her chest. OBJECTIVE: VITAL SIGNS: Her temperature is 97.9, pulse 80, respirations 16, O2 saturation 98% on 2L, and blood pressure 142/74. HEENT: Clear. NECK: No adenopathy or JVD. LUNGS: She has inspiratory crackles bilaterally which improved with deep breathing. CARDIAC: S1 and S2 regular. ABDOMEN: Soft. EXTREMITIES: No edema. LABORATORY DATA: White blood cell count 10.9, hematocrit 33.7, and platelet count 381. Sodium 145, potassium 3.7, chloride 112, CO2 of 22, BUN 22, creatinine 2.2, glucose 81. ASSESSMENT: 1. Pneumonia, improved after changing her antibiotics. 2. Renal insufficiency. PLAN: 1. Recheck chest x-ray tomorrow. 2. Continue piperacillin with vancomycin, nebulization treatments and low-dose IV steroids. Job ID: [id number]
[2019-10-15] MEDS: Insulin Regular 300 UNITS/3 ML VIAL SC PRN ×3 (12:55→20:48)
[2019-10-15 15:57] LABS: Vancomycin, Trough 6.9 ug/mL
--- NOTE | 2019-10-15 17:01 | PDOC.HOSPP ---
- Subjective Subjective: Seen and examined. Follow up on bilateral pneumonia acute kidney injury. Patient is improving on maximal medical therapy. Breathing more comfortably. Saturating adequately on room air. Patient's exercise tolerance is improving. Renal function improving. Time was given for questions, all answered in detail. Family at bedside. - Objective Vital Signs & Weight: Vital Signs (12 hours) Temp Pulse Resp BP Pulse Ox 10/15/19 14:17 68 16 95 10/15/19 08:21 80 16 98 10/15/19 07:51 97.9 F 71 20 142/74 H 96 Weight Admit Weight 178 lb Weight 178 lb 2.136 oz Most Recent Monitor Data Heart Rate from ECG 79 NIBP 125/74 NIBP BP-Mean 91 Respiration from ECG 29 SpO2 96 I&O: 10/14/19 10/15/19 10/16/19 06:59 06:59 06:59 Intake Total 1550 1430 Balance 1550 1430 Result Diagrams: 10/15/19 05:33 10/15/19 05:33 Additional Labs: Accuchecks 10/15/19 10/15/19 10/14/19 11:37 04:43 20:18 POC Glucose 199 H 76 352 H Radiology Reviewed by me: Yes Hospitalist ROS - Review of Systems All other systems reviewed; all pertinent +/- noted in HPI/Subj - Medication Medications: Active Medications Generic Name Dose Route Start Last Admin Trade Name Freq PRN Reason Stop Dose Admin Acetaminophen 650 mg 10/07/19 16:03 10/13/19 05:49 Tylenol PO 650 mg Q4H PRN Administration Headache/Fever/Mild Pain (1-3) Albuterol/Ipratropium 3 ml 10/10/19 15:00 10/15/19 14:17 Duoneb NEB 3 ml [id number] KALYANI Administration Amitriptyline HCl 10 mg 10/09/19 21:00 10/14/19 20:38 Elavil PO 10 mg HS KALYANI Administration Guaifenesin 200 mg 10/07/19 16:03 10/13/19 05:39 Robitussin Sf PO 200 mg Q4H PRN Administration Cough Guaifenesin 1,200 mg 10/11/19 09:00 10/15/19 08:34 Mucinex PO 1,200 mg Q12HR KALYANI Administration Heparin Sodium (Porcine) 5,000 units 10/07/19 21:00 10/15/19 15:47 Heparin SC 5,000 units TID KALYANI Administration Potassium Phosphate 9 mmol/ 103 mls @ 25.75 mls/hr 10/09/19 05:59 10/09/19 06 :28 Sodium Chloride IVPB 103 mls ASDIR PRN Administration Phosphate 1.0-1.8 Piperacillin Sod/Tazobactam 100 mls @ 200 mls/hr 10/13/19 15:00 10/15/19 06: 11 Sod 2.25 gm/ Sodium Chloride IVPB 100 mls 0700,1500,2300 KALYANI Administration Lactated Ringer's 1,000 mls @ 100 mls/hr 10/13/19 16:15 10/15/19 15:46 Lactated Ringer's IV 1,000 mls .Q10H KALYANI Administration Insulin Glargine 35 units/ 0.35 mls @ 1 mls/hr 10/14/19 21:00 10/15/19 08:39 Miscellaneous Medication SC 0.35 mls BID KALYANI Administration Insulin Human Regular 0 units 10/08/19 08:20 10/15/19 12:55 Humulin R SC 3 unit .AGGRESSIVE SLIDING PRN Administration Aggressive Correctional Scale Insulin Human Regular 0 units 10/08/19 08:20 10/14/19 20:44 Humulin R SC 5 unit .BEDTIME SLIDING SC PRN Administration Bedtime Correctional Scale Loratadine 10 mg 10/07/19 16:03 10/13/19 22:53 Claritin PO 10 mg DAILYPRN PRN Administration Sinus Symptoms Methylprednisolone Sodium Succinate 20 mg 10/13/19 21:00 10/15/19 08:35 Solu-Medrol IVP 20 mg BID KALYANI Administration Miscellaneous Medication 1 pkt 10/08/19 09:00 10/15/19 15:47 Phos-Nak PO 1 pkt TID KALYANI Administration Nystatin 500,000 units 10/11/19 17:00 10/15/19 13:00 Mycostatin SSW Not Given QID KALYANI Ondansetron HCl 4 mg 10/07/19 16:03 10/09/19 12:33 Zofran Odt PO 4 mg Q6H PRN Administration Nausea/Vomiting Ondansetron HCl 4 mg 10/07/19 16:03 10/12/19 05:40 Zofran IVP 4 mg Q6H PRN Administration Nausea/Vomiting Sodium Bicarbonate 650 mg 10/10/19 15:00 10/15/19 15:49 Bicarbonate, Sodium PO 650 mg TID KALYANI Administration Sodium Chloride 10 ml 10/10/19 09:00 10/15/19 12:55 Flush - Normal Saline IVF Not Given Q12HR KALYANI - Exam General Appearance: NAD, awake alert Eye: anicteric sclera ENT: normocephalic atraumatic, moist mucosa Neck: supple, symmetric, no lymphadenopathy Heart: no murmur, no gallops, no rubs Respiratory: no rales, normal chest expansion, no tachypnea, rhonchi, wheezes ( improving - nearly resolving) Gastrointestinal: soft, non-tender, no guarding, no rigidity Extremities: no edema Skin: no lesions, no rashes Neurological: cranial nerve grossly intact, no focal deficits Musculoskeletal: generalized weakness Psychiatric: A&O x 3 Hosp A/P (1) Bilateral pneumonia Code(s): J18.9 - PNEUMONIA, UNSPECIFIED ORGANISM Status: Acute (2) Acute kidney failure Status: Acute (3) Hypophosphatemia Code(s): E83.39 - OTHER DISORDERS OF PHOSPHORUS METABOLISM Status: Acute (4) UTI (urinary tract infection) Status: Acute (5) Acute metabolic encephalopathy Code(s): G93.41 - METABOLIC ENCEPHALOPATHY Status: Resolved (6) DKA (diabetic ketoacidoses) Code(s): E11.10 - TYPE 2 DIABETES MELLITUS WITH KETOACIDOSIS WITHOUT COMA Status: Resolved Qualifiers: Diabetes mellitus type: type 2 (7) Metabolic acidosis Code(s): E87.2 - ACIDOSIS Status: Resolved (8) Lactic acidosis Code(s): E87.2 - ACIDOSIS Status: Ruled-out (9) Hyperosmolality due to uncontrolled type 1 diabetes mellitus Code(s): E10.69 - TYPE 1 DIABETES MELLITUS WITH OTHER SPECIFIED COMPLICATION; E10.65 - TYPE 1 DIABETES MELLITUS WITH HYPERGLYCEMIA Status: Acute (10) Leucocytosis Code(s): D72.829 - ELEVATED WHITE BLOOD CELL COUNT, UNSPECIFIED Status: Acute (11) SIRS (systemic inflammatory response syndrome) Code(s): R65.10 - SIRS OF NON-INFECTIOUS ORIGIN W/O ACUTE ORGAN DYSFUNCTION Status: Acute (12) DM2 (diabetes mellitus, type 2) Status: Chronic - Plan Plan: medical unit nephrology consultation, recommendations appreciated pulmonology consultation, recommendations appreciated CT chest noted Pulmonary specific ABX Nystatin swish and swallow renal function now at her baseline, with help from nephrology replace electrolytes as needed adjust long and short acting insulin for glucose control patient has been noncompliant with outpatient regimen resulting in admission with diabetic ketoacidosis and renal failure continue other home medications is able blood pressure control G.I. prophylaxis DVT prophylaxis Disposition: Improving on maximum medical therapy. Likely home in the next 24- 48 hours if continues to improve
[2019-10-15] MEDS: Vancomycin HCl 500 MG in Sodium Chloride 0.9% 100 ML IVPB SCH (18:06)
[2019-10-15] MEDS: Vancomycin HCl 1 GM in Premix Bag 1 BAG IVPB SCH (19:25)
--- NOTE | 2019-10-15 20:02 | PRG ---
DATE OF SERVICE: 10/15/2019 SERVICE: Nephrology. SUBJECTIVE: A 53-year-old female, seen in followup for acute on chronic renal failure. The patient reports feeling better today. Oral intake is improving. Denied fever, nausea, vomiting, or diarrhea. OBJECTIVE: VITAL SIGNS: Temperature 97.9, pulse 71, respiratory rate 20, SpO2 of 96% on 2 L nasal cannula, and blood pressure is 142/74. GENERAL: Female, in no obvious distress. Afebrile. Anicteric. Acyanotic. HEENT: Normocephalic, atraumatic. Oral mucosa is moist. CARDIOVASCULAR: Regular rhythm and rate with normal heart sounds 1 and 2. RESPIRATORY: Fair air entry bilaterally with few crackles and some transmitted breath sounds, but no obvious rhonchi or use of accessory muscles. GI: Full, soft, nontender, nondistended with normal bowel sounds. EXTREMITIES: Dry, but no edema or erythema. Otherwise grossly normal looking. [employer]: Conscious and alert, oriented x3 with appropriate mental status. Cranial nerves 2 through 12 are grossly intact. DIAGNOSTIC DATA: CBC showed WBC count of 10.9, hemoglobin of 10.5, MCV of 82.5, and platelets of 381. Renal function panel showed sodium 145, potassium 3.7, chloride 112, CO2 of 22, BUN 22, creatinine 2.19, glucose 81, calcium 8.1, phosphorus 3.0, and albumin 2.5. ASSESSMENT: 1. Acute kidney injury: Due to hemodynamic factors related to volume depletion as well as cytokine-mediated injury. Creatinine is improving with IV fluid and resolution of sepsis. 2. Chronic kidney disease, stage 3 due to diabetes mellitus and hypertension. 3. Hypokalemia: Repleted. 4. Metabolic acidosis: Improved. PLAN: We will continue lactated Ringer's at 100 mL/hour. We will follow renal function. We will monitor electrolytes and replete as indicated. Repeat renal function in the morning. Further treatment to follow depending on hospital course. Job ID: [id number]
[2019-10-15] MEDS: Amitriptyline HCl 10 MG TAB PO SCH (20:45)
[2019-10-16] MEDS: Lactated Ringer's 1,000 ML IV SCH (06:17)
[2019-10-16] MEDS: Piperacillin/Tazobactam 2.25 GM in Sodium Chloride 0.9% 100 ML IVPB SCH ×3 (06:17→23:01)
[2019-10-16 06:29] LABS: Albumin 2.6 g/dL (3.5-5.0); Anion Gap 14 mmol/L (10-20); BUN (Urea Nitrogen) 23 mg/dL (9.8-20.1); BUN/Creatinine Ratio 11.27; Calc. Creatinine Clearance 41 mL/min (70-130); Calcium 7.9 mg/dL (7.8-10.44); Carbon Dioxide 23 mmol/L (22-29); Chloride 110 mmol/L (98-107); Estimated GFR-MDRD 31; Glucose 105 mg/dL (70-105); Phosphorus 3.1 mg/dL (2.3-4.7); Potassium 3.6 mmol/L (3.5-5.1); Sodium 143 mmol/L (136-145)
[2019-10-16] MEDS: Sodium Bicarbonate Tab 325 MG TAB PO SCH ×3 (08:53→20:52)
[2019-10-16] MEDS: guaiFENesin ER 600 MG TAB PO SCH ×2 (08:53→20:52)
[2019-10-16] MEDS: PHOS-NAK 1 PKT PACK PO SCH ×3 (08:54→20:54)
[2019-10-16] MEDS: Insulin Glargine 35 UNITS in Pre-Filled Syringe 1 EACH SC SCH ×2 (08:55→20:53)
[2019-10-16] MEDS: Heparin 5,000 UNITS/ML VIAL SC SCH ×3 (08:55→20:53)
[2019-10-16] MEDS: methylPREDNISolone Sod Succ 40 MG VIAL IVP SCH ×2 (09:01→20:54)
[2019-10-16] MEDS: Nystatin 500,000 UNITS/5 ML UDCUP SSW SCH ×4 (09:01→20:54)
--- NOTE | 2019-10-16 09:29 | PRG ---
DATE OF SERVICE: 10/16/2019 SUBJECTIVE: Ms. Rivera feels better. She is beginning to get up more. OBJECTIVE: VITAL SIGNS: Temperature 97.9, pulse 83, respirations 18, O2 saturation 94%, and blood pressure 156/91. HEENT: Unremarkable. NECK: No adenopathy or JVD. CHEST: With bilateral crackles. CARDIAC: S1 and S2, regular. ABDOMEN: Soft. EXTREMITIES: No edema. ASSESSMENT: Pneumonia, resistant to initial antibiotics, but getting better since we changed vancomycin to Zosyn. PLAN: Continue present care. X-ray shows definite improvement. Hopefully, she can go home by the end of the week, but I would like her to get 7 full days of the Zosyn before discharge if possible. Job ID: [id number]
--- NOTE | 2019-10-16 09:55 | RAD ---
PORTABLE CHEST: Date: 10/16/2019 PROVIDED CLINICAL HISTORY: Pneumonia. FINDINGS: Comparison with 10/13/2019. Cardiac and mediastinal silhouette is unchanged in appearance. Bilateral air space disease is redemon strated, without significant interval change with respect to prior. No pleural fluid or pneumothorax apparent. IMPRESSION: Stable radiographic appearance of the chest. POS: TPC
--- NOTE | 2019-10-16 14:17 | PDOC.HOSPP ---
- Subjective Subjective: Seen and examined. Patient continues to improved daily. Her lungs are getting to the point where she is saturating well on room air, cough with productive sputum has significantly improved. We will plan for her to complete a full course of IV Zosyn here in the hospital and plan for discharge towards the end of the week. Time was given for questions, all answered in detail. Patient is happy with plan of care. - Objective Vital Signs & Weight: Vital Signs (12 hours) Temp Pulse Resp BP Pulse Ox 10/16/19 10:45 84 18 96 10/16/19 08:00 94 L 10/16/19 07:45 97.9 F 83 18 156/91 H 94 L 10/16/19 07:27 78 16 98 Weight Admit Weight 178 lb Weight 178 lb 2.136 oz Most Recent Monitor Data Heart Rate from ECG 79 NIBP 125/74 NIBP BP-Mean 91 Respiration from ECG 29 SpO2 96 I&O: 10/15/19 10/16/19 10/17/19 06:59 06:59 06:59 Intake Total 1430 Balance 1430 Result Diagrams: 10/15/19 05:33 10/16/19 05:51 Additional Labs: Accuchecks 10/16/19 10/16/19 10/15/19 11:24 04:38 20:13 POC Glucose 94 133 H 406 H 10/15/19 16:41 POC Glucose 303 H Radiology Reviewed by me: Yes Hospitalist ROS - Review of Systems All other systems reviewed; all pertinent +/- noted in HPI/Subj - Medication Medications: Active Medications Generic Name Dose Route Start Last Admin Trade Name Freq PRN Reason Stop Dose Admin Acetaminophen 650 mg 10/07/19 16:03 10/13/19 05:49 Tylenol PO 650 mg Q4H PRN Administration Headache/Fever/Mild Pain (1-3) Albuterol/Ipratropium 3 ml 10/10/19 15:00 10/16/19 10:45 Duoneb NEB 3 ml [id number] KALYANI Administration Amitriptyline HCl 10 mg 10/09/19 21:00 10/15/19 20:45 Elavil PO 10 mg HS KALYANI Administration Guaifenesin 200 mg 10/07/19 16:03 10/13/19 05:39 Robitussin Sf PO 200 mg Q4H PRN Administration Cough Guaifenesin 1,200 mg 10/11/19 09:00 10/16/19 08:53 Mucinex PO 1,200 mg Q12HR KALYANI Administration Heparin Sodium (Porcine) 5,000 units 10/07/19 21:00 10/16/19 08:55 Heparin SC 5,000 units TID KALYANI Administration Potassium Phosphate 9 mmol/ 103 mls @ 25.75 mls/hr 10/09/19 05:59 10/09/19 06 :28 Sodium Chloride IVPB 103 mls ASDIR PRN Administration Phosphate 1.0-1.8 Piperacillin Sod/Tazobactam 100 mls @ 200 mls/hr 10/13/19 15:00 10/16/19 06: 17 Sod 2.25 gm/ Sodium Chloride IVPB 100 mls 0700,1500,2300 KALYANI Administration Insulin Glargine 35 units/ 0.35 mls @ 1 mls/hr 10/14/19 21:00 10/16/19 08:55 Miscellaneous Medication SC 0.35 mls BID KALYANI Administration Vancomycin HCl 1 gm/ Device 200 mls @ 200 mls/hr 10/15/19 17:00 10/15/19 19: 25 IVPB 200 mls 1700 KALYANI Administration Insulin Human Regular 0 units 10/08/19 08:20 10/15/19 18:15 Humulin R SC 11 unit .AGGRESSIVE SLIDING PRN Administration Aggressive Correctional Scale Insulin Human Regular 0 units 10/08/19 08:20 10/15/19 20:48 Humulin R SC 5 unit .BEDTIME SLIDING SC PRN Administration Bedtime Correctional Scale Loratadine 10 mg 10/07/19 16:03 10/13/19 22:53 Claritin PO 10 mg DAILYPRN PRN Administration Sinus Symptoms Methylprednisolone Sodium Succinate 20 mg 10/13/19 21:00 10/16/19 09:01 Solu-Medrol IVP Not Given BID KALYANI Miscellaneous Medication 1 pkt 10/08/19 09:00 10/16/19 08:54 Phos-Nak PO 1 pkt TID KALYANI Administration Nystatin 500,000 units 10/11/19 17:00 10/16/19 12:21 Mycostatin SSW Not Given QID KALYANI Ondansetron HCl 4 mg 10/07/19 16:03 10/09/19 12:33 Zofran Odt PO 4 mg Q6H PRN Administration Nausea/Vomiting Ondansetron HCl 4 mg 10/07/19 16:03 10/12/19 05:40 Zofran IVP 4 mg Q6H PRN Administration Nausea/Vomiting Sodium Bicarbonate 650 mg 10/10/19 15:00 10/16/19 08:53 Bicarbonate, Sodium PO 650 mg TID KALYANI Administration Sodium Chloride 10 ml 10/10/19 09:00 10/16/19 09:01 Flush - Normal Saline IVF Not Given Q12HR KALYANI - Exam General Appearance: NAD, awake alert Eye: anicteric sclera ENT: normocephalic atraumatic, moist mucosa Neck: supple, symmetric, no lymphadenopathy Heart: no murmur, no gallops, no rubs Respiratory: no rales, no ronchi, normal chest expansion, no tachypnea, wheezes (few faint) Gastrointestinal: soft, non-tender, no guarding, no rigidity Extremities: no edema Skin: no lesions, no rashes Neurological: cranial nerve grossly intact, no focal deficits Musculoskeletal: generalized weakness Psychiatric: normal affect, normal behavior, A&O x 3 Hosp A/P (1) Bilateral pneumonia Code(s): J18.9 - PNEUMONIA, UNSPECIFIED ORGANISM Status: Acute (2) Acute kidney failure Status: Acute (3) Hypophosphatemia Code(s): E83.39 - OTHER DISORDERS OF PHOSPHORUS METABOLISM Status: Acute (4) UTI (urinary tract infection) Status: Acute (5) Acute metabolic encephalopathy Code(s): G93.41 - METABOLIC ENCEPHALOPATHY Status: Resolved (6) DKA (diabetic ketoacidoses) Code(s): E11.10 - TYPE 2 DIABETES MELLITUS WITH KETOACIDOSIS WITHOUT COMA Status: Resolved Qualifiers: Diabetes mellitus type: type 2 (7) Metabolic acidosis Code(s): E87.2 - ACIDOSIS Status: Resolved (8) Lactic acidosis Code(s): E87.2 - ACIDOSIS Status: Ruled-out (9) Hyperosmolality due to uncontrolled type 1 diabetes mellitus Code(s): E10.69 - TYPE 1 DIABETES MELLITUS WITH OTHER SPECIFIED COMPLICATION; E10.65 - TYPE 1 DIABETES MELLITUS WITH HYPERGLYCEMIA Status: Acute (10) Leucocytosis Code(s): D72.829 - ELEVATED WHITE BLOOD CELL COUNT, UNSPECIFIED Status: Acute (11) SIRS (systemic inflammatory response syndrome) Code(s): R65.10 - SIRS OF NON-INFECTIOUS ORIGIN W/O ACUTE ORGAN DYSFUNCTION Status: Acute (12) DM2 (diabetes mellitus, type 2) Status: Chronic - Plan Plan: medical unit nephrology consultation, recommendations appreciated pulmonology consultation, recommendations appreciated CT chest noted Pulmonary specific ABX Nystatin swish and swallow renal function now at her baseline, with help from nephrology replace electrolytes as needed adjust long and short acting insulin for glucose control patient has been noncompliant with outpatient regimen resulting in admission with diabetic ketoacidosis and renal failure continue other home medications is able blood pressure control G.I. prophylaxis DVT prophylaxis Disposition: Improving on maximum medical therapy. Likely home towards the end of the week after completed a full course of Zosyn.
[2019-10-16] MEDS: Acetaminophen 325 MG TAB PO PRN (16:18)
[2019-10-16] MEDS: Vancomycin HCl 1 GM in Premix Bag 1 BAG IVPB SCH (17:09)
--- NOTE | 2019-10-16 19:09 | PRG ---
DATE OF SERVICE: 10/16/2019 SERVICE: Nephrology. SUBJECTIVE: A 53-year-old seen in followup for acute on chronic renal failure. The patient was admitted initially for uncontrolled diabetes with DKA and later developed acute respiratory failure from multifocal pneumonia. Clinically improved. Feels a lot better. Denied nausea, vomiting. Oral intake is improving. The patient is currently off oxygen. OBJECTIVE: VITAL SIGNS: Temperature 97.9, pulse 83, respiratory rate 18, SpO2 of 94% on room air, blood pressure is 156/91. GENERAL: Comfortable female, in no distress. Afebrile. Anicteric. Acyanotic. HEENT: Normocephalic, atraumatic. Oral mucosa is moist. CARDIOVASCULAR: Regular rhythm and rate. Normal heart sounds 1 and 2. RESPIRATORY: Fair air entry bilaterally with scattered crackles. No rhonchi or use of accessory muscles was appreciated. GI: Full, soft, nontender, nondistended with normal bowel sounds. EXTREMITIES: Grossly normal looking, atraumatic with no edema or erythema. SUPERINTENDENT POWER: Conscious, alert, oriented x3 with appropriate mental status. Cranial nerves 2 through 12 are grossly intact. DIAGNOSTIC DATA: Renal function panel showed sodium 143, potassium 3.6, chloride 110, CO2 of 23, BUN 23, creatinine 2.04, glucose 105, calcium 7.9, phosphorus 3.1, albumin 2.6. ASSESSMENT: 1. Acute kidney injury: Improved. Creatinine is trending downwards. Baseline creatinine is unknown. 2. Chronic kidney disease stage 3/4. 3. Metabolic acidosis: Improved. 4. Hypokalemia, improved. 5. Hyperkalemia, resolved. 6. Multifocal pneumonia, on treatment. PLAN: 1. We will discontinue IV fluid therapy. 2. [place] oral intake advised. 3. Avoid nephrotoxic agent including Lasix diuretics and RAAS amberly at this time. 4. Antibiotics as per primary attending. 5. Increase activity. 6. Recheck renal function test with discontinuation of IV fluids tomorrow morning. Job ID: [id number]
[2019-10-16] MEDS: Amitriptyline HCl 10 MG TAB PO SCH (20:52)
[2019-10-17] MEDS: Piperacillin/Tazobactam 2.25 GM in Sodium Chloride 0.9% 100 ML IVPB SCH ×2 (06:19→14:53)
[2019-10-17 07:23] LABS: Albumin 2.4 g/dL (3.5-5.0); Anion Gap 13 mmol/L (10-20); BUN (Urea Nitrogen) 18 mg/dL (9.8-20.1); BUN/Creatinine Ratio 10.17; Calc. Creatinine Clearance 47 mL/min (70-130); Calcium 7.5 mg/dL (7.8-10.44); Carbon Dioxide 25 mmol/L (22-29); Chloride 110 mmol/L (98-107); Estimated GFR-MDRD 36; Glucose 89 mg/dL (70-105); Phosphorus 3.9 mg/dL (2.3-4.7); Potassium 3.6 mmol/L (3.5-5.1); Sodium 144 mmol/L (136-145)
--- NOTE | 2019-10-17 08:32 | PRG ---
DATE OF SERVICE: 10/17/2019 SUBJECTIVE: She feels somewhat better. She has begun to walk more. OBJECTIVE: VITAL SIGNS: Temperature 99.0, pulse 86, respirations 20, O2 saturation 92% on room air, blood pressure 135/51. HEENT: Unremarkable. NECK: No adenopathy or JVD. CHEST: With coarse rhonchi bilaterally. CARDIOVASCULAR: S1, S2. Regular. ABDOMEN: Soft. EXTREMITIES: No edema. LABORATORY DATA: BUN is 18, creatinine 1.7. ASSESSMENT: 1. Slowly improving pneumonia, on IV Zosyn. 2. Improving renal dysfunction. PLAN: Continue Zosyn and vancomycin. The last day of antibiotic should be Tuesday. This could be done as an outpatient, if she qualified. Job ID: [id number]
[2019-10-17] MEDS: guaiFENesin ER 600 MG TAB PO SCH ×2 (08:46→21:12)
[2019-10-17] MEDS: Sodium Bicarbonate Tab 325 MG TAB PO SCH ×3 (08:46→21:12)
[2019-10-17] MEDS: Heparin 5,000 UNITS/ML VIAL SC SCH ×3 (08:47→21:13)
[2019-10-17] MEDS: methylPREDNISolone Sod Succ 40 MG VIAL IVP SCH ×2 (08:48→21:12)
[2019-10-17] MEDS: Insulin Glargine 35 UNITS in Pre-Filled Syringe 1 EACH SC SCH ×2 (08:50→21:13)
[2019-10-17] MEDS: Nystatin 500,000 UNITS/5 ML UDCUP SSW SCH ×4 (08:52→21:22)
[2019-10-17] MEDS: PHOS-NAK 1 PKT PACK PO SCH ×3 (08:52→21:12)
--- NOTE | 2019-10-17 12:50 | PDOC.HOSPP ---
- Subjective Encounter Date: 10/17/19 Encounter Time: 12:47 Subjective: Patient seen and examined for DKA/KIM/Pneumonia. SOB on exertion. Some cough. No other complaints. No overnight events - Objective Vital Signs & Weight: Vital Signs (12 hours) Temp Pulse Resp BP Pulse Ox 10/17/19 11:27 68 18 99 10/17/19 08:16 81 18 100 10/17/19 08:00 96 10/17/19 07:37 98.2 F 78 16 154/95 H 96 Weight Admit Weight 178 lb Weight 178 lb 2.136 oz Most Recent Monitor Data Heart Rate from ECG 79 NIBP 125/74 NIBP BP-Mean 91 Respiration from ECG 29 SpO2 96 Result Diagrams: 10/15/19 05:33 10/17/19 06:46 Additional Labs: Accuchecks 10/17/19 10/17/19 10/16/19 11:14 04:50 20:01 POC Glucose 92 129 H 131 H 10/16/19 18:00 POC Glucose 82 Radiology Reviewed by me: Yes (CT chest - Pneumonia) Hospitalist ROS - Review of Systems Cardiovascular: denies: chest pain, palpitations, orthopnea, paroxysmal noc. dyspnea, edema, light headedness, other Gastrointestinal: denies: nausea, vomiting, abdominal pain, diarrhea, constipation, melena, hematochezia, other - Medication Medications: Active Medications Generic Name Dose Route Start Last Admin Trade Name Freq PRN Reason Stop Dose Admin Acetaminophen 650 mg 10/07/19 16:03 10/16/19 16:18 Tylenol PO 650 mg Q4H PRN Administration Headache/Fever/Mild Pain (1-3) Albuterol/Ipratropium 3 ml 10/10/19 15:00 10/17/19 11:27 Duoneb NEB 3 ml [id number] KALYANI Administration Amitriptyline HCl 10 mg 10/09/19 21:00 10/16/19 20:52 Elavil PO 10 mg HS KALYANI Administration Guaifenesin 1,200 mg 10/11/19 09:00 10/17/19 08:46 Mucinex PO 1,200 mg Q12HR KALYANI Administration Heparin Sodium (Porcine) 5,000 units 10/07/19 21:00 10/17/19 08:47 Heparin SC 5,000 units TID KALYANI Administration Potassium Phosphate 9 mmol/ 103 mls @ 25.75 mls/hr 10/09/19 05:59 10/09/19 06 :28 Sodium Chloride IVPB 103 mls ASDIR PRN Administration Phosphate 1.0-1.8 Piperacillin Sod/Tazobactam 100 mls @ 200 mls/hr 10/13/19 15:00 10/17/19 06: 19 Sod 2.25 gm/ Sodium Chloride IVPB 100 mls 0700,1500,2300 KALYANI Administration Insulin Glargine 35 units/ 0.35 mls @ 1 mls/hr 10/14/19 21:00 10/17/19 08:50 Miscellaneous Medication SC 0.35 mls BID KALYANI Administration Vancomycin HCl 1 gm/ Device 200 mls @ 200 mls/hr 10/15/19 17:00 10/16/19 17: 09 IVPB 200 mls 1700 KALYANI Administration Insulin Human Regular 0 units 10/08/19 08:20 10/15/19 18:15 Humulin R SC 11 unit .AGGRESSIVE SLIDING PRN Administration Aggressive Correctional Scale Insulin Human Regular 0 units 10/08/19 08:20 10/15/19 20:48 Humulin R SC 5 unit .BEDTIME SLIDING SC PRN Administration Bedtime Correctional Scale Loratadine 10 mg 10/07/19 16:03 10/13/19 22:53 Claritin PO 10 mg DAILYPRN PRN Administration Sinus Symptoms Methylprednisolone Sodium Succinate 20 mg 10/13/19 21:00 10/17/19 08:48 Solu-Medrol IVP 20 mg BID KALYANI Administration Miscellaneous Medication 1 pkt 10/08/19 09:00 10/17/19 08:52 Phos-Nak PO Not Given TID [facility] Nystatin 500,000 units 10/11/19 17:00 10/17/19 08:52 Mycostatin SSW Not Given QID [facility] Ondansetron HCl 4 mg 10/07/19 16:03 10/09/19 12:33 Zofran Odt PO 4 mg Q6H PRN Administration Nausea/Vomiting Ondansetron HCl 4 mg 10/07/19 16:03 10/12/19 05:40 Zofran IVP 4 mg Q6H PRN Administration Nausea/Vomiting Sodium Bicarbonate 650 mg 10/10/19 15:00 10/17/19 08:46 Bicarbonate, Sodium PO 650 mg TID KALYANI Administration Sodium Chloride 10 ml 10/10/19 09:00 10/17/19 08:52 Flush - Normal Saline IVF 10 ml Q12HR KALYANI Administration - Exam Neck: no JVD Heart: RRR, no gallops Respiratory: no wheezes, rales, rhonchi Gastrointestinal: soft, non-tender, non-distended, normal bowel sounds Extremities: no cyanosis, no clubbing Hosp A/P - Plan DVT proph w/heparin, DVT proph w/SCDs DKA KIM on CKD 3 Sepsis due to Multifocal Pneumonia ?gram negatives and UTI Metabolic acidosis Hyperkalemia/Hypokalemia PLAN: Cont IV Vancomycin/Zosyn Monitor Vancomycin level Cont Current dose of Lantus Cont sliding scale Cont other meds as above
[2019-10-17 16:46] LABS: Vancomycin, Trough 11.9 ug/mL
[2019-10-17] MEDS ORDERED: Amlodipine 5 MG TAB PO SCH (17:30)
[2019-10-17] MEDS: Vancomycin 1.5 GRAM/300 ML BAG 1.5 GM in Premix Bag 1 BAG IVPB SCH (17:33)
--- NOTE | 2019-10-17 17:42 | PRG ---
DATE OF SERVICE: 10/17/2019 SERVICE: Nephrology. SUBJECTIVE: A 53-year-old female, seen in followup for acute on chronic renal failure. The patient was initially admitted due to diabetic ketoacidosis and later developed multifocal pneumonia. Clinically improved. Oral intake has improved. Denied nausea, vomiting, diarrhea, or abdominal pain. The patient also denied fever or chest pain. Cough is subsiding. OBJECTIVE: VITAL SIGNS: Temperature 98.2, pulse 81, respiratory rate 18, SpO2 of 100% on room air, blood pressure is 154/95. GENERAL: Comfortable female, in no distress. Afebrile. Anicteric. Acyanotic. HEENT: Normocephalic and atraumatic. Oral mucosa is moist. CARDIOVASCULAR: Regular rhythm and rate. Normal heart sounds one and two. RESPIRATORY: Fair air entry bilaterally with scattered crackles. Work of breathing is not increased. GI: Full, soft, nontender, nondistended with normal bowel sounds. EXTREMITIES: Grossly normal looking, atraumatic with no edema or erythema. ETL TESTER: Conscious, alert, oriented x3 with appropriate mental status. DIAGNOSTIC DATA: Renal function panel showed sodium 144, potassium 3.6, chloride 110, CO2 of 25, BUN 18, creatinine 1.77, glucose 89, calcium 7.5, phosphorus 3.9, albumin 2.9. ASSESSMENT: 1. Acute kidney injury: Due to hemodynamic factors and cytokine mediated injury. Creatinine continued to trend downwards. Creatinine today is 1.77. 2. Chronic kidney disease stage 3: Baseline creatinine is unknown at this time. It is most likely due to hypertension and diabetic mellitus. 3. Hypertension: Control is suboptimal. 4. Hypokalemia, repleted. 5. Hyperkalemia: Present on admission, resolved. 6. Metabolic acidosis: Resolved. 7. Multifocal pneumonia on treatment. PLAN: 1. [place] oral intake advised. 2. We will start low-dose amlodipine to get adequate blood pressure control. 3. We will repeat renal function panel in the morning. 4. The patient can be discharged from Nephrology point of view to follow up in outpatient if deemed medically stable for discharge. We will continue to follow up with you while the patient is still hospitalized. Job ID: [id number]
[2019-10-17] MEDS: Amitriptyline HCl 10 MG TAB PO SCH (21:13)
[2019-10-17] MEDS: Insulin Regular 300 UNITS/3 ML VIAL SC PRN (21:17)
[2019-10-18] MEDS: Piperacillin/Tazobactam 2.25 GM in Sodium Chloride 0.9% 100 ML IVPB SCH ×4 (00:05→23:30)
[2019-10-18] MEDS: methylPREDNISolone Sod Succ 40 MG VIAL IVP SCH (07:52)
[2019-10-18] MEDS: Heparin 5,000 UNITS/ML VIAL SC SCH ×3 (07:53→21:13)
[2019-10-18] MEDS: Nystatin 500,000 UNITS/5 ML UDCUP SSW SCH ×4 (07:53→21:41)
[2019-10-18] MEDS: Saccharomyces boulardii 250 MG CAP PO SCH (07:53)
[2019-10-18] MEDS: Sodium Bicarbonate Tab 325 MG TAB PO SCH ×3 (07:53→21:13)
[2019-10-18] MEDS: PHOS-NAK 1 PKT PACK PO SCH ×3 (07:53→21:14)
[2019-10-18] MEDS: guaiFENesin ER 600 MG TAB PO SCH ×2 (07:54→21:13)
[2019-10-18] MEDS: Amlodipine 5 MG TAB PO SCH (07:54)
[2019-10-18] MEDS: Acetaminophen 325 MG TAB PO PRN (09:42)
[2019-10-18] MEDS: Insulin Glargine 35 UNITS in Pre-Filled Syringe 1 EACH SC SCH ×2 (10:43→21:14)
--- NOTE | 2019-10-18 11:01 | PRG ---
DATE OF SERVICE: 10/18/2019 SUBJECTIVE: She continues to improve. No complaints today. OBJECTIVE: VITAL SIGNS: Temperature 98.8, pulse 92, respirations 18, O2 saturations 96%, and blood pressure 153/94. HEENT: Unremarkable. NECK: No adenopathy or JVD. CHEST: Improved air entry. Few crackles. ABDOMEN: Soft, nontender. EXTREMITIES: No edema. ASSESSMENT: Improving pneumonia, on broad-spectrum IV antibiotics. PLAN: Last day of antibiotic should be Tuesday, she can go home after that. I will go ahead and switch her over to oral steroids. Job ID: [id number]
[2019-10-18] MEDS ORDERED: Carvedilol 6.25 MG TAB PO SCH (15:30)
--- NOTE | 2019-10-18 15:42 | PRG ---
DATE OF SERVICE: 10/18/2019 SERVICE: Nephrology. SUBJECTIVE: A 53-year-old female, seen in followup for acute on chronic renal failure. The patient was admitted with DKA and later developed multifocal pneumonia, for which she is getting antibiotics. Reports feeling better. Denied nausea, vomiting, or diarrhea. Oral intake has improved. OBJECTIVE: VITAL SIGNS: Temperature 98.8, pulse 92, respiratory rate 18, SpO2 of 96% on room air, and blood pressure is 153/94. GENERAL: Comfortable female, in no distress. Afebrile. Anicteric. Acyanotic. HEENT: Normocephalic, atraumatic. Oral mucosa is moist. CARDIOVASCULAR: Regular rhythm and rate with normal heart sounds one and two. RESPIRATORY: Fair air entry bilaterally with a few scattered crackles. No rhonchi or use of accessory muscles were appreciated. GI: Full, soft, nontender, nondistended with normal bowel sounds. EXTREMITIES: Grossly normal looking, atraumatic with no edema or erythema. 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 Cranial nerves 2 through 12 are grossly intact. DIAGNOSTIC DATA: No labs obtained today. ASSESSMENT: 1. Acute kidney injury: Due to hemodynamic factors as well as cytokine-mediated injury. Creatinine is trending down towards baseline. 2. Chronic kidney disease, stage 3. 3. Hypertension: Control is suboptimal. 4. Metabolic acidosis: Resolved. 5. Volume depletion: Markedly improved with IV . Oral intake also has improved and the patient is currently off IV fluids. 6. Multifocal pneumonia. 7. Diabetes mellitus with diabetic ketoacidosis. PLAN: 1. [place] oral intake to continue. 2. We will add carvedilol to amlodipine to get adequate BP control. 3. We will recheck renal function test in the morning. 4. Antibiotics as per primary attending. Job ID: [id number]
[2019-10-18] MEDS: Insulin Regular 300 UNITS/3 ML VIAL SC PRN ×3 (16:04→21:15)
[2019-10-18] MEDS: Vancomycin 1.5 GRAM/300 ML BAG 1.5 GM in Premix Bag 1 BAG IVPB SCH (17:17)
--- NOTE | 2019-10-18 18:49 | PDOC.HOSPP ---
- Subjective Encounter Date: 10/18/19 Encounter Time: 16:00 Subjective: Patient seen and examined for Pneumonia/DKA. No new complaints. No overnight events - Objective Vital Signs & Weight: Vital Signs (12 hours) Temp Pulse Resp BP BP Pulse Ox 10/18/19 15:42 173/103 H 10/18/19 13:50 89 15 100 10/18/19 11:31 85 16 95 10/18/19 08:03 98.8 F 92 18 153/94 H 96 10/18/19 08:00 96 10/18/19 07:54 75 10/18/19 06:50 75 18 100 Weight Admit Weight 178 lb Weight 178 lb 2.136 oz Most Recent Monitor Data Heart Rate from ECG 79 NIBP 125/74 NIBP BP-Mean 91 Respiration from ECG 29 SpO2 96 I&O: 10/17/19 10/18/19 10/19/19 06:59 06:59 06:59 Intake Total 960 Balance 960 Result Diagrams: 10/15/19 05:33 10/17/19 06:46 Additional Labs: Accuchecks 10/18/19 10/18/19 10/18/19 16:49 11:41 04:02 POC Glucose 534 H 337 H 245 H 10/17/19 20:06 POC Glucose 403 H Hospitalist ROS - Review of Systems Cardiovascular: denies: chest pain, palpitations, orthopnea, paroxysmal noc. dyspnea, edema, light headedness, other Gastrointestinal: denies: nausea, vomiting, abdominal pain, diarrhea, constipation, melena, hematochezia, other - Medication Medications: Active Medications Generic Name Dose Route Start Last Admin Trade Name Freq PRN Reason Stop Dose Admin Acetaminophen 650 mg 10/07/19 16:03 10/18/19 09:42 Tylenol PO 650 mg Q4H PRN Administration Headache/Fever/Mild Pain (1-3) Albuterol/Ipratropium 3 ml 10/10/19 15:00 10/18/19 13:50 Duoneb NEB 3 ml [id number] KALYANI Administration Amitriptyline HCl 10 mg 10/09/19 21:00 10/17/19 21:13 Elavil PO 10 mg HS KALYANI Administration Amlodipine Besylate 2.5 mg 10/18/19 09:00 10/18/19 07:54 Norvasc PO 2.5 mg DAILY KALYANI Administration Guaifenesin 1,200 mg 10/11/19 09:00 10/18/19 07:54 Mucinex PO 1,200 mg Q12HR KALYANI Administration Heparin Sodium (Porcine) 5,000 units 10/07/19 21:00 10/18/19 14:29 Heparin SC 5,000 units TID KALYANI Administration Potassium Phosphate 9 mmol/ 103 mls @ 25.75 mls/hr 10/09/19 05:59 10/09/19 06 :28 Sodium Chloride IVPB 103 mls ASDIR PRN Administration Phosphate 1.0-1.8 Piperacillin Sod/Tazobactam 100 mls @ 200 mls/hr 10/13/19 15:00 10/18/19 14: 29 Sod 2.25 gm/ Sodium Chloride IVPB 100 mls 0700,1500,2300 KALYANI Administration Insulin Glargine 35 units/ 0.35 mls @ 1 mls/hr 10/14/19 21:00 10/18/19 10:43 Miscellaneous Medication SC 0.35 mls BID KALYANI Administration Vancomycin HCl 1.5 gm/ Device 300 mls @ 200 mls/hr 10/17/19 17:00 10/18/19 17 :17 IVPB 300 mls 1700 KALYANI Administration Insulin Human Regular 0 units 10/08/19 08:20 10/18/19 17:46 Humulin R SC 2 unit .AGGRESSIVE SLIDING PRN Administration Aggressive Correctional Scale Insulin Human Regular 0 units 10/08/19 08:20 10/17/19 21:17 Humulin R SC 5 unit .BEDTIME SLIDING SC PRN Administration Bedtime Correctional Scale Loratadine 10 mg 10/07/19 16:03 10/13/19 22:53 Claritin PO 10 mg DAILYPRN PRN Administration Sinus Symptoms Miscellaneous Medication 1 pkt 10/08/19 09:00 10/18/19 14:29 Phos-Nak PO 1 pkt TID KALYANI Administration Nystatin 500,000 units 10/11/19 17:00 10/18/19 16:33 Mycostatin SSW Not Given QID KALYANI Ondansetron HCl 4 mg 10/07/19 16:03 10/09/19 12:33 Zofran Odt PO 4 mg Q6H PRN Administration Nausea/Vomiting Ondansetron HCl 4 mg 10/07/19 16:03 10/12/19 05:40 Zofran IVP 4 mg Q6H PRN Administration Nausea/Vomiting Saccharomyces Boulardii 250 mg 10/18/19 09:00 10/18/19 07:53 Florastor PO 250 mg DAILY KALYANI Administration Sodium Bicarbonate 650 mg 10/10/19 15:00 10/18/19 14:28 Bicarbonate, Sodium PO 650 mg TID KALYANI Administration Sodium Chloride 10 ml 10/10/19 09:00 10/18/19 10:44 Flush - Normal Saline IVF 10 ml Q12HR KALYANI Administration - Exam General Appearance: NAD Heart: RRR, no gallops Respiratory: no wheezes, no rales, no ronchi Gastrointestinal: non-tender, non-distended, normal bowel sounds Extremities: no cyanosis Hosp A/P - Plan DVT proph w/SCDs DKA KIM on CKD 3 Sepsis due to Multifocal Pneumonia ?gram negatives and UTI Metabolic acidosis Hyperkalemia/Hypokalemia PLAN: Cont IV Vancomycin/Zosyn until Tuesday Vancomycin level monitoring Cont Lantus Cont aggressive sliding scale Add 5 units TID Cont other meds as above
[2019-10-18] MEDS: Amitriptyline HCl 10 MG TAB PO SCH (21:13)
[2019-10-18] MEDS: Carvedilol 6.25 MG TAB PO SCH (21:14)
[2019-10-19 06:04] LABS: Albumin 2.8 g/dL (3.5-5.0); Anion Gap 10 mmol/L (10-20); BUN (Urea Nitrogen) 21 mg/dL (9.8-20.1); BUN/Creatinine Ratio 11.93; Calc. Creatinine Clearance 48 mL/min (70-130); Calcium 7.9 mg/dL (7.8-10.44); Carbon Dioxide 29 mmol/L (22-29); Chloride 106 mmol/L (98-107); Estimated GFR-MDRD 37; Phosphorus 3.2 mg/dL (2.3-4.7); Potassium 3.1 mmol/L (3.5-5.1); Sodium 142 mmol/L (136-145)
[2019-10-19] MEDS: Piperacillin/Tazobactam 2.25 GM in Sodium Chloride 0.9% 100 ML IVPB SCH ×3 (06:05→23:27)
[2019-10-19 06:08] LABS: Glucose 51 mg/dL (70-105)
[2019-10-19] MEDS ORDERED: Potassium Chloride 20 MEQ TAB PO SCH (07:30)
[2019-10-19] MEDS ORDERED: Insulin Regular 300 UNITS/3 ML VIAL IVP SCH (08:00)
[2019-10-19] MEDS: Insulin Regular 300 UNITS/3 ML VIAL SC SCH ×3 (08:15→17:20)
[2019-10-19] MEDS: Saccharomyces boulardii 250 MG CAP PO SCH (08:21)
[2019-10-19] MEDS: Carvedilol 6.25 MG TAB PO SCH ×2 (08:22→21:01)
[2019-10-19] MEDS: Sodium Bicarbonate Tab 325 MG TAB PO SCH ×2 (08:23→21:00)
[2019-10-19] MEDS: predniSONE 20 MG TAB PO SCH (08:25)
[2019-10-19] MEDS: Nystatin 500,000 UNITS/5 ML UDCUP SSW SCH ×4 (08:26→21:02)
[2019-10-19] MEDS: PHOS-NAK 1 PKT PACK PO SCH ×3 (08:26→21:02)
--- NOTE | 2019-10-19 09:19 | PRG ---
DATE OF SERVICE: 10/19/2019 SUBJECTIVE: The patient is doing much better. She has no acute complaints. OBJECTIVE: VITAL SIGNS: Her temperature 98, pulse 78, blood pressure 173/103, and O2 saturation 94% room air. HEENT: Unremarkable. NECK: No adenopathy or JVD. CHEST: Clear anteriorly. CARDIAC: S1 and S2. Regular. ABDOMEN: Soft. EXTREMITIES: No edema. ASSESSMENT: Improving pneumonia, failed initial inpatient therapy, but doing better on extended spectrum IV antibiotics. PLAN: She should be able to go home after her noon dose of Zosyn on Tuesday. She needs to follow up in about 3 to 4 weeks with the repeat chest x-ray. Please call for further questions. Job ID: [id number]
[2019-10-19] MEDS: Amlodipine 5 MG TAB PO SCH (09:57)
[2019-10-19] MEDS: guaiFENesin ER 600 MG TAB PO SCH ×2 (09:58→21:00)
[2019-10-19] MEDS: Insulin Glargine 30 UNITS in Pre-Filled Syringe 1 EACH SC SCH (10:02)
[2019-10-19] MEDS: Heparin 5,000 UNITS/ML VIAL SC SCH ×3 (10:03→21:01)
--- NOTE | 2019-10-19 16:44 | PRG ---
DATE OF SERVICE: 10/19/2019 SERVICE: Nephrology. SUBJECTIVE: A 53-year-old female seen in followup for acute kidney injury. The patient has known history of CKD. She was initially admitted due to DKA and subsequently developed multifocal pneumonia, for which she is getting antibiotics currently. Oral intake has improved and there is no history of nausea, vomiting, or change in bowel habit. Feeling a lot better. OBJECTIVE: VITAL SIGNS: Temperature 98.8, pulse 78, respiratory rate 18, SpO2 of 94% on room air, and blood pressure is 155/98. GENERAL: Comfortable female, in no distress. Afebrile. Anicteric. Acyanotic. HEENT: Normocephalic and atraumatic. Oral mucosa is moist. CARDIOVASCULAR: Regular rhythm and rate with normal heart sounds one and two. RESPIRATORY: Fair air entry bilaterally with few crackles. No rhonchi or use of accessory muscles appreciated. GI: Full, soft, nontender, and nondistended with normal bowel sounds. EXTREMITIES: Grossly normal looking, atraumatic with no edema or erythema. 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 Cranial nerves 2 through 12 are grossly intact. DIAGNOSTIC DATA: Renal function panel showed sodium 142, potassium 3.1, chloride 106, CO2 of 29 BUN 21, creatinine 1.76, glucose 51, calcium 7.9, phosphorus 3.2, and albumin 2.8. ASSESSMENT: 1. Acute kidney injury: Due to hemodynamic factors related to volume depletion and cytokine-mediated injury. Creatinine has plateaued at 1.7, which seems to be her new baseline. 2. Chronic kidney disease stage 3: Most likely due to diabetic nephropathy as well as hypertensive nephrosclerosis. Baseline creatinine seems to be around 1.7. 3. Hypokalemia. 4. Metabolic acidosis: Resolved. 5. Hypoglycemia: Live most likely due to insulin therapy. 6. Hypertension: Control is better, but still suboptimal. PLAN: 1. We will replete serum potassium. We will also get serum magnesium level and replete serum magnesium if indicated. 2. We will monitor the patient on currently increase antihypertensives and consider escalating dose if indicated to get adequate BP control. 3. Continue alkali therapy. 4. Avoid diuretics or other nephrotoxic agent including SEBASTIAN amberly for now. 5. Recheck renal function in the morning. Job ID: [id number]
[2019-10-19] MEDS: Vancomycin 1.5 GRAM/300 ML BAG 1.5 GM in Premix Bag 1 BAG IVPB SCH (16:54)
[2019-10-19 16:55] LABS: Vancomycin, Trough 14.9 ug/mL
[2019-10-19] MEDS: Amitriptyline HCl 10 MG TAB PO SCH (21:00)
[2019-10-19] MEDS ORDERED: Insulin Glargine 25 UNITS in Pre-Filled Syringe 1 EACH SC SCH (21:00)
[2019-10-19] MEDS: Insulin Regular 300 UNITS/3 ML VIAL SC PRN (21:05)
--- NOTE | 2019-10-19 21:23 | PDOC.HOSPP ---
- Subjective Encounter Date: 10/19/19 Encounter Time: 11:00 Subjective: Patient seen and examined for DKA/Pneumonia. Hypoglycemic earlier. No fever or chills. Dry cough. No new complaints. No overnight events - Objective Vital Signs & Weight: Vital Signs (12 hours) Temp Pulse Resp BP BP BP Pulse Ox 10/19/19 21:01 139/92 H 10/19/19 19:47 98.8 F 82 16 139/92 H 96 10/19/19 16:06 98.0 F 77 16 151/98 H 96 10/19/19 15:28 85 16 10/19/19 12:02 98.1 F 74 16 132/86 95 10/19/19 10:52 80 16 94 L 10/19/19 09:57 173/103 H Weight Admit Weight 178 lb Weight 178 lb 2.136 oz Most Recent Monitor Data Heart Rate from ECG 79 NIBP 125/74 NIBP BP-Mean 91 Respiration from ECG 29 SpO2 96 I&O: 10/18/19 10/19/19 10/20/19 06:59 06:59 06:59 Intake Total 960 720 Balance 960 720 Result Diagrams: 10/15/19 05:33 10/19/19 05:28 Additional Labs: Accuchecks 10/19/19 10/19/19 10/19/19 19:50 16:08 12:04 POC Glucose 256 H 189 H 57 L* 10/19/19 10/19/19 10/19/19 06:08 05:16 05:15 POC Glucose 101 47 L* 49 L* 10/18/19 20:39 POC Glucose 476 H Hospitalist ROS - Review of Systems Respiratory: denies: cough, dry, shortness of breath, hemoptysis, SOB with excertion, pleuritic pain, sputum, wheezing, other Cardiovascular: denies: chest pain, palpitations, orthopnea, paroxysmal noc. dyspnea, edema, light headedness, other - Medication Medications: Active Medications Generic Name Dose Route Start Last Admin Trade Name Freq PRN Reason Stop Dose Admin Acetaminophen 650 mg 10/07/19 16:03 10/18/19 09:42 Tylenol PO 650 mg Q4H PRN Administration Headache/Fever/Mild Pain (1-3) Albuterol/Ipratropium 3 ml 10/10/19 15:00 10/19/19 19:43 Duoneb NEB Not Given [id number] KALYANI Amitriptyline HCl 10 mg 10/09/19 21:00 10/19/19 21:00 Elavil PO 10 mg HS KALYANI Administration Amlodipine Besylate 2.5 mg 10/18/19 09:00 10/19/19 09:57 Norvasc PO 2.5 mg DAILY KALYANI Administration Carvedilol 6.25 mg 10/18/19 21:00 10/19/19 21:01 Coreg PO 6.25 mg BID KALYANI Administration Guaifenesin 1,200 mg 10/11/19 09:00 10/19/19 21:00 Mucinex PO 1,200 mg Q12HR KALYANI Administration Heparin Sodium (Porcine) 5,000 units 10/07/19 21:00 10/19/19 21:01 Heparin SC 5,000 units TID KALYANI Administration Potassium Phosphate 9 mmol/ 103 mls @ 25.75 mls/hr 10/09/19 05:59 10/09/19 06 :28 Sodium Chloride IVPB 103 mls ASDIR PRN Administration Phosphate 1.0-1.8 Piperacillin Sod/Tazobactam 100 mls @ 200 mls/hr 10/13/19 15:00 10/19/19 14: 55 Sod 2.25 gm/ Sodium Chloride IVPB 100 mls 0700,1500,2300 KALYANI Administration Vancomycin HCl 1.5 gm/ Device 300 mls @ 200 mls/hr 10/17/19 17:00 10/19/19 16 :54 IVPB 300 mls 1700 KALYANI Administration Insulin Glargine 30 units/ 0.3 mls @ 0 mls/hr 10/19/19 09:00 10/19/19 10:02 Miscellaneous Medication SC 0.3 mls QAM KALYANI Administration Insulin Human Regular 0 units 10/08/19 08:20 10/18/19 17:46 Humulin R SC 2 unit .AGGRESSIVE SLIDING PRN Administration Aggressive Correctional Scale Insulin Human Regular 0 units 10/08/19 08:20 10/19/19 21:05 Humulin R SC 3 unit .BEDTIME SLIDING SC PRN Administration Bedtime Correctional Scale Insulin Human Regular 5 units 10/19/19 08:00 10/19/19 17:20 Humulin R SC 5 unit TID-WM KALYANI Administration Loratadine 10 mg 10/07/19 16:03 10/13/19 22:53 Claritin PO 10 mg DAILYPRN PRN Administration Sinus Symptoms Miscellaneous Medication 1 pkt 10/08/19 09:00 10/19/19 21:02 Phos-Nak PO Not Given TID KALYANI Nystatin 500,000 units 10/11/19 17:00 10/19/19 21:02 Mycostatin SSW Not Given QID [facility] Ondansetron HCl 4 mg 10/07/19 16:03 10/09/19 12:33 Zofran Odt PO 4 mg Q6H PRN Administration Nausea/Vomiting Ondansetron HCl 4 mg 10/07/19 16:03 10/12/19 05:40 Zofran IVP 4 mg Q6H PRN Administration Nausea/Vomiting Prednisone 20 mg 10/19/19 09:00 10/19/19 08:25 Prednisone PO 20 mg DAILY KALYANI Administration Saccharomyces Boulardii 250 mg 10/18/19 09:00 10/19/19 08:21 Florastor PO 250 mg DAILY KALYANI Administration Sodium Bicarbonate 650 mg 10/19/19 09:00 10/19/19 21:00 Bicarbonate, Sodium PO 650 mg BID KALYANI Administration Sodium Chloride 10 ml 10/10/19 09:00 10/19/19 21:02 Flush - Normal Saline IVF 10 ml Q12HR KALYANI Administration - Exam General Appearance: NAD Heart: RRR, no gallops Respiratory: no wheezes, no rales, no ronchi Gastrointestinal: non-distended, normal bowel sounds Extremities: no cyanosis Neurological: no new deficit Hosp A/P - Plan DVT proph w/SCDs DKA KIM on CKD 3 Hypokalemia DM2 with Hypoglycemia Sepsis due to Multifocal Pneumonia ?gram negatives and UTI Metabolic acidosis Hyperkalemia/Hypokalemia PLAN: Reduce Lantus to 30 units daily Cont aggressive sliding scale with 5 units TID Replace Potassium Cont Prednisone Cont IV Vancomycin/Zosyn until Tuesday Vancomycin level monitoring Cont other meds as above DC in AM if stable
[2019-10-20] MEDS: Acetaminophen 325 MG TAB PO PRN (04:37)
[2019-10-20 05:36] LABS: Hemoglobin 9.6 g/dL (12.0-16.0); Mean Corpuscular HGB CONC 31.6 g/dL (32.0-36.0); Mean Corpuscular Hemoglobin 27.2 pg (27.0-31.0); Platelet Count 460 thou/uL (130-400); Red Blood Cell (RBC) Count 3.52 mill/uL (4.20-5.40); White Blood Cell (WBC) Count 12.4 thou/uL (4.8-10.8)
[2019-10-20 05:55] LABS: Anion Gap 13 mmol/L (10-20); BUN (Urea Nitrogen) 18 mg/dL (9.8-20.1); Calc. Creatinine Clearance 52 mL/min (70-130); Carbon Dioxide 28 mmol/L (22-29); Chloride 105 mmol/L (98-107); Estimated GFR-MDRD 41; Potassium 3.5 mmol/L (3.5-5.1); Sodium 142 mmol/L (136-145)
[2019-10-20 05:56] LABS: Albumin 2.5 g/dL (3.5-5.0); BUN/Creatinine Ratio 11.25; Calcium 7.8 mg/dL (7.8-10.44); Glucose 92 mg/dL (70-105); Magnesium 1.5 mg/dL (1.6-2.6); Phosphorus 3.6 mg/dL (2.3-4.7)
[2019-10-20] MEDS: Piperacillin/Tazobactam 2.25 GM in Sodium Chloride 0.9% 100 ML IVPB SCH ×2 (06:14→15:01)
[2019-10-20] MEDS: Sodium Bicarbonate Tab 325 MG TAB PO SCH (08:01)
[2019-10-20] MEDS: Carvedilol 6.25 MG TAB PO SCH ×2 (08:02→19:42)
[2019-10-20] MEDS: PHOS-NAK 1 PKT PACK PO SCH (08:02)
[2019-10-20] MEDS: predniSONE 20 MG TAB PO SCH (08:02)
[2019-10-20] MEDS: Amlodipine 5 MG TAB PO SCH (08:02)
[2019-10-20] MEDS: guaiFENesin ER 600 MG TAB PO SCH (08:02)
[2019-10-20] MEDS: Saccharomyces boulardii 250 MG CAP PO SCH (08:02)
[2019-10-20] MEDS: Nystatin 500,000 UNITS/5 ML UDCUP SSW SCH ×3 (08:03→16:57)
[2019-10-20] MEDS: Insulin Regular 300 UNITS/3 ML VIAL SC SCH ×3 (08:06→19:10)
[2019-10-20] MEDS: Insulin Glargine 30 UNITS in Pre-Filled Syringe 1 EACH SC SCH ×2 (08:06→14:17)
[2019-10-20] MEDS: Heparin 5,000 UNITS/ML VIAL SC SCH ×2 (08:07→15:06)
[2019-10-20] MEDS ORDERED: Magnesium 2 GM/50 ML 2 GM in Premix Bag 1 BAG IVPB SCH (08:15)
--- NOTE | 2019-10-20 10:32 | PDOC.HOSPP ---
- Subjective Encounter Date: 10/20/19 Encounter Time: 13:40 Subjective: Patient without complaint. BS down to 70 this AM, no sig hypoglycemia like yesterday. Wants to go home. - Objective Vital Signs & Weight: Vital Signs (12 hours) Temp Pulse Resp BP Pulse Ox 10/20/19 10:18 81 96 10/20/19 08:02 85 10/20/19 07:31 85 99 10/20/19 07:19 98.5 F 81 18 144/92 H 96 Weight Admit Weight 178 lb Weight 178 lb 2.136 oz Most Recent Monitor Data Heart Rate from ECG 79 NIBP 125/74 NIBP BP-Mean 91 Respiration from ECG 29 SpO2 96 I&O: 10/19/19 10/20/19 10/21/19 06:59 06:59 06:59 Intake Total 960 720 Balance 960 720 Result Diagrams: 10/20/19 05:14 10/20/19 05:13 Additional Labs: Accuchecks 10/20/19 10/19/19 10/19/19 04:46 19:50 16:08 POC Glucose 76 256 H 189 H 10/19/19 12:04 POC Glucose 57 L* Hospitalist ROS - Review of Systems Constitutional: denies: fever, chills Respiratory: denies: cough, shortness of breath Cardiovascular: denies: chest pain, palpitations, orthopnea Gastrointestinal: denies: nausea, vomiting, abdominal pain, diarrhea, constipation Genitourinary: denies: dysuria, hematuria - Medication Medications: Active Medications Generic Name Dose Route Start Last Admin Trade Name Freq PRN Reason Stop Dose Admin Acetaminophen 650 mg 10/07/19 16:03 10/20/19 04:37 Tylenol PO 650 mg Q4H PRN Administration Headache/Fever/Mild Pain (1-3) Albuterol/Ipratropium 3 ml 10/10/19 15:00 10/20/19 10:18 Duoneb NEB 3 ml [id number] KALYANI Administration Amitriptyline HCl 10 mg 10/09/19 21:00 10/19/19 21:00 Elavil PO 10 mg HS KALYANI Administration Amlodipine Besylate 2.5 mg 10/18/19 09:00 10/20/19 08:02 Norvasc PO 2.5 mg DAILY KALYANI Administration Carvedilol 6.25 mg 10/18/19 21:00 10/20/19 08:02 Coreg PO 6.25 mg BID KALYANI Administration Guaifenesin 1,200 mg 10/11/19 09:00 10/20/19 08:02 Mucinex PO 1,200 mg Q12HR KALYANI Administration Heparin Sodium (Porcine) 5,000 units 10/07/19 21:00 10/20/19 08:07 Heparin SC 5,000 units TID KALYANI Administration Potassium Phosphate 9 mmol/ 103 mls @ 25.75 mls/hr 10/09/19 05:59 10/09/19 06 :28 Sodium Chloride IVPB 103 mls ASDIR PRN Administration Phosphate 1.0-1.8 Piperacillin Sod/Tazobactam 100 mls @ 200 mls/hr 10/13/19 15:00 10/20/19 06: 14 Sod 2.25 gm/ Sodium Chloride IVPB 100 mls 0700,1500,2300 KALYANI Administration Vancomycin HCl 1.5 gm/ Device 300 mls @ 200 mls/hr 10/17/19 17:00 10/19/19 16 :54 IVPB 300 mls 1700 KALYANI Administration Insulin Glargine 30 units/ 0.3 mls @ 0 mls/hr 10/19/19 09:00 10/20/19 08:06 Miscellaneous Medication SC Not Given QAM KALYANI Insulin Human Regular 0 units 10/08/19 08:20 10/18/19 17:46 Humulin R SC 2 unit .AGGRESSIVE SLIDING PRN Administration Aggressive Correctional Scale Insulin Human Regular 0 units 10/08/19 08:20 10/19/19 21:05 Humulin R SC 3 unit .BEDTIME SLIDING SC PRN Administration Bedtime Correctional Scale Insulin Human Regular 5 units 10/19/19 08:00 10/20/19 08:06 Humulin R SC Not Given TID-WM KALYANI Loratadine 10 mg 10/07/19 16:03 10/13/19 22:53 Claritin PO 10 mg DAILYPRN PRN Administration Sinus Symptoms Miscellaneous Medication 1 pkt 10/08/19 09:00 10/20/19 08:02 Phos-Nak PO Not Given TID KALYANI Nystatin 500,000 units 10/11/19 17:00 10/20/19 08:03 Mycostatin SSW Not Given QID KALYANI Ondansetron HCl 4 mg 10/07/19 16:03 10/09/19 12:33 Zofran Odt PO 4 mg Q6H PRN Administration Nausea/Vomiting Ondansetron HCl 4 mg 10/07/19 16:03 10/12/19 05:40 Zofran IVP 4 mg Q6H PRN Administration Nausea/Vomiting Prednisone 20 mg 10/19/19 09:00 10/20/19 08:02 Prednisone PO 20 mg DAILY KALYANI Administration Saccharomyces Boulardii 250 mg 10/18/19 09:00 10/20/19 08:02 Florastor PO 250 mg DAILY KALYANI Administration Sodium Bicarbonate 650 mg 10/19/19 09:00 10/20/19 08:01 Bicarbonate, Sodium PO 650 mg BID KALYANI Administration Sodium Chloride 10 ml 10/10/19 09:00 10/19/19 21:02 Flush - Normal Saline IVF 10 ml Q12HR KALYANI Administration - Exam General Appearance: NAD, awake alert ENT: moist mucosa Heart: RRR, no murmur, no gallops, no rubs Respiratory: CTAB, no wheezes, no rales, no ronchi Gastrointestinal: soft, non-tender, non-distended, normal bowel sounds Psychiatric: normal affect, normal behavior, A&O x 3 Hosp A/P - Plan DVT proph w/SCDs DKA KIM on CKD 3 Hypokalemia DM2 with Hypoglycemia- resolved with decreased insulin Sepsis due to Multifocal Pneumonia- improved with Zosyn and Vanc, day 8 today Metabolic acidosis Hyperkalemia/Hypokalemia- resolved PLAN: Reduced Lantus to 30 units daily with good control, still on the low side in AM so will decrease to 28 units. Cont aggressive sliding scale with 5 units TID Replaced Potassium Cont Prednisone Cont IV Vancomycin/Zosyn last dose today Cont other meds as above DC this afternoon after last Zosyn antibiotic dose
[2019-10-20] MEDS ORDERED: Potassium Chloride 20 MEQ TAB PO SCH (12:45)
--- NOTE | 2019-10-20 12:57 | PRG ---
DATE OF SERVICE: 10/20/2019 SERVICE: Nephrology. SUBJECTIVE: A 53-year-old female seen in followup for acute kidney injury. Feeling better. Discharge is contemplated. OBJECTIVE: VITAL SIGNS: Temperature 98.5, pulse 81, respiratory rate 18, SpO2 of 96% on room air, blood pressure is 144/92. GENERAL: Middle-age female, in no obvious distress. Afebrile. Anicteric. Acyanotic. HEENT: Normocephalic, atraumatic. Oral mucosa is moist. CARDIOVASCULAR: Regular rhythm and rate with normal heart sounds 1 and 2. RESPIRATORY: Fair air entry bilaterally with a few scattered crackles and some transmitted breath sounds. No use of accessory muscles noted. GI: Full, soft, nontender, nondistended with normal bowel sounds. EXTREMITIES: Grossly normal looking, atraumatic with no edema or erythema. [employer]: Conscious, alert, oriented x3 with appropriate mental status. Cranial nerves 2 through 12 are grossly intact. DIAGNOSTIC DATA: CBC showed WBC count of 12.4, hemoglobin of 9.6, MCV of 86.0, platelets of 460. Renal function panel showed sodium 142, potassium 3.5, chloride 105, CO2 of 28, BUN 18, creatinine 1.6, glucose 92, calcium 7.8, phosphorus 3.6, magnesium 1.5, globulin 2.5. ASSESSMENT: 1. Acute kidney injury: Improved. Creatinine is down to 1.6 from peak of 3.68. Baseline creatinine is unknown. 2. Chronic kidney disease stage 3 or 4. Baseline creatinine is unknown. 3. Hypomagnesemia: Most likely due to poor oral intake and increased losses in urine. 4. Hypertension: Control is fair. 5. Hypokalemia: Repleted. 6. Hyperkalemia: Due to metabolic acidosis. Resolved. 7. Metabolic acidosis: Resolved with alkali therapy. PLAN: 1. Replete serum magnesium with magnesium sulfate. 2. Continue current medications (antihypertensives). 3. Avoid nephrotoxic agent including SEBASTIAN amberly. The patient can be discharged from Nephrology point of view. The patient needs to follow up in 2 weeks in the office with repeat labs. Job ID: [id number]
[2019-10-20] MEDS: Vancomycin 1.5 GRAM/300 ML BAG 1.5 GM in Premix Bag 1 BAG IVPB SCH (16:52)
[2019-10-20] MEDS ORDERED: HumaLOG 300 UNITS/3 ML VIAL SC PRN (18:55)
[2019-10-20] MEDS: Insulin Regular 300 UNITS/3 ML VIAL SC PRN (19:06)
[2019-10-20 19:45] VITALS: BP 158/92; TEMP 98.7
[2019-10-21] MEDS ORDERED: Insulin Glargine 28 UNITS in Pre-Filled Syringe 1 EACH SC SCH (09:00)
--- NOTE | 2019-10-22 07:13 | DIS ---
DATE OF ADMISSION: 10/07/2019 DATE OF DISCHARGE: 10/20/2019 PRIMARY CARE PHYSICIAN: Davy Darnell MD REASON FOR ADMISSION: Diabetic ketoacidosis. DIAGNOSES AT DISCHARGE: 1. Diabetic ketoacidosis, resolved. 2. Acute on chronic renal failure, stage 3. 3. Hypokalemia, resolved. 4. Diabetes mellitus type 2, insulin dependent. 5. Multifocal pneumonia. 6. Sepsis, resolved. PROCEDURES: 1. Renal ultrasound showing mildly increased cortical echogenicity. 2. CT of the chest showing multifocal infiltrates favoring an infectious process rather than pulmonary edema with a normal-sized heart. 3. Echocardiogram showing ejection fraction of 55% to 60%. No significant abnormalities. CONSULTATIONS: 1. Pulmonology, Rafael Wagner MD. 2. Nephrology, Joan Holland Obi, MD. SUMMARY OF HOSPITAL COURSE: This is a 53-year-old Afro-[place] female with a history of diabetes mellitus type 2, requiring insulin, not taking any insulin for the last three months. For several days, the patient was having polyuria, polydipsia, and losing weight. Also with dizziness and lightheadedness. She came into the emergency room lethargic and weak, was found to be in DKA with a blood sugar in the 700s. Lactic acid was 6.3. She was admitted to the hospital on insulin drip with IV fluids. Had hyperkalemia initially, eventually developed hypokalemia, which was replaced. During the hospitalization, the patient had some difficulty with breathing after her fluid resuscitation, was concerned about possible CHF. She was given some diuretics that did not really improve her breathing. Chest x-ray was concerning for infiltrate. She did have a CT scan of the chest with above results. The patient was diagnosed with multifocal pneumonia, put on antibiotics, broad-spectrum IV antibiotics were started, Zosyn and vancomycin and the patient had a slow improvement in her symptoms. She also had an acute exacerbation of her chronic renal failure. Dr. Sweeney was consulted. This improved with fluid resuscitation. The patient was eventually switched to long-acting insulins. She had been prescribed 60 units of insulin long-acting insulin at home, though she was not taking it for the last three months as per the HPI. On insulin here, she had some low blood sugars down to the 50s. Her insulin was eventually decreased down to 28 units and her blood sugars were stable not going down below the 70s. The patient was doing well. On the day of discharge, she was off oxygen and was eager to be discharged home. She was cleared for discharge by Dr. Sweeney and by Dr. Wagner after her last dose of antibiotics today. DISCHARGE MANAGEMENT: Discharged home. ACTIVITY: As tolerated. DIET: Diabetic diet. FOLLOWUP: The patient is to follow up with Dr. Sweeney in [address] Darnell in the clinic in the next week. MEDICATIONS: 1. Amlodipine 2.5 mg daily, 30 tablets dispensed. 2. Carvedilol 6.25 mg twice a day, 60 tablets dispensed. 3. Regular insulin 5 units subcu t.i.d. before meals, one vial dispensed. 4. Florastor 250 mg daily, 30 capsules dispensed. 5. The patient can use her long-acting insulin, she purchased the [employer] Max SoloStar; however, she is to use 28 units subcu each morning. I have written the change on the prescription that she has attached to her insulin that she has with her in the hospital. 6. Amitriptyline 10 mg at night. 7. Lisinopril 10 mg daily. TIME SPENT: Arranging the details of this discharge took 35 minutes. Job ID: [id number]
== END 2019-10-20 19:57 | disposition home or self-care (01) | DRG 871 ==
LOC: ERS 11:51 → CCU 15:45 → T4-B 10-08 12:04
PROVIDERS: ADMIT Internal Medicine; ATTEND Internal Medicine
DX: A41.9 Sepsis, unspecified organism (principal); E11.10 Type 2 diabetes mellitus with ketoacidosis without coma; G93.41 Metabolic encephalopathy; J18.9 Pneumonia, unspecified organism; J96.01 Acute respiratory failure with hypoxia; N39.0 Urinary tract infection, site not specified; N17.9 Acute kidney failure, unspecified; E87.2 Acidosis; E87.5 Hyperkalemia; E83.39 Other disorders of phosphorus metabolism; E11.22 Type 2 diabetes mellitus with diabetic chronic kidney disease; I12.9 Hypertensive chronic kidney disease with stage 1 through stage 4 chronic kidney disease, or unspecified chronic kidney disease; N18.3 Chronic kidney disease, stage 3 (moderate); E87.6 Hypokalemia; E87.8 Other disorders of electrolyte and fluid balance, not elsewhere classified; E11.69 Type 2 diabetes mellitus with other specified complication; E11.649 Type 2 diabetes mellitus with hypoglycemia without coma; T38.3X5A Adverse effect of insulin and oral hypoglycemic [antidiabetic] drugs, initial encounter; Z79.4 Long term (current) use of insulin; Z91.14 Patient's other noncompliance with medication regimen; Z79.899 Other long term (current) drug therapy; E86.9 Volume depletion, unspecified
CPT/HCPCS: 36415; 36416; 71045; 71250; 76770; 80048; 80053; 80069; 80202; 81003; 81015; 82010; 82330; 82570; 82803; 82805; 83036; 83605; 83735; 83880; 84100; 84145; 84156; 84300; 84484; 85025; 85027; 87040; 87070; 87086; 87205; 87633; 93005; 93306; 94640; 96361; 96365; 96366; 96367; 96375; J0456; J0692; J0696; J1644; J1815; J1940; J1956; J2405; J2543; J2920; J3370; J3475; J3490; J7050; J7512; J7620; Q0162

== ENCOUNTER 2025-05-26 12:00 | Emergency (ER) | payer OTHER ==
[2025-05-26 12:36] LABS: #Basophils 0.06 10x3/uL (0.0-0.2); #Eosinophils 0.05 10x3/uL (0.0-0.7); #Monocytes 1.18 10x3/uL (0.11-0.59); #Neutrophils 13.80 10x3/uL (1.40-6.50); %Basophils 0.3 % (0.0-1.0); %Eosinophils 0.3 % (0.0-10.0); %Lymphocytes 12.2 % (21.0-51.0); %Monocytes 6.8 % (0.0-10.0); %Neutrophils 80.1 % (42.0-75.0); Hematocrit 44.3 % (36.0-47.0); Hemoglobin 14.1 g/dL (12.0-16.0); Mean Corpuscular Hemoglobin 25.9 pg (27.0-31.0); Mean Corpuscular Volume 81.4 fL (78.0-98.0); Platelet Count 327 10x3/uL (130-400); Red Blood Cell (RBC) Count 5.44 mill/uL (4.20-5.40); White Blood Cell (WBC) Count 17.26 10x3/uL (4.8-10.8)
[2025-05-26 13:05] LABS: Albumin 3.9 g/dL (3.1-4.5); Chloride 108 mmol/L (98-107); Potassium 3.8 mmol/L (3.5-5.1); Sodium 142 mmol/L (136-145)
[2025-05-26 13:06] LABS: Calcium 9.9 mg/dL (7.8-10.44); Glucose 152 mg/dL (70-105)
[2025-05-26 13:07] LABS: Globulin 4.5 g/dL (2.4-3.5)
[2025-05-26 13:08] LABS: Anion Gap 19 mmol/L (10-20); Carbon Dioxide 19 mmol/L (22-29)
[2025-05-26 13:09] LABS: Alkaline Phosphatase 93 U/L (40-110); Bilirubin, Total 0.7 mg/dL (0.3-1.2)
[2025-05-26 13:10] LABS: BUN (Urea Nitrogen) 10 mg/dL (9.8-20.1); Calc. Creatinine Clearance 0 mL/min (70-130)
[2025-05-26 13:12] LABS: ALT (SGPT) Less than 7 U/L (Less than 34); AST (SGOT) 15 U/L (11-34)
[2025-05-26] MEDS ORDERED: Dexamethasone 10 MG/ML VIAL ONE (13:16)
[2025-05-26] MEDS ORDERED: Ketorolac Tromethamine 30 MG (1 mL) VIAL ONE (13:16)
[2025-05-26] MEDS ORDERED: Iopamidol-370 76% 500 ML MDV (1 ML CHARGE) ONE (13:23)
[2025-05-26 13:30] LABS: CAUTI Indications for Culture Fever or rigors; Glucose, Urine (Dipstick) Greater than 1000 mg/dL (Negative); Leukocyte 25 Leu/uL (Negative); Protein, Urine (Dipstick) Negative (Neg-Trace); Specific Gravity, Urine 1.045 (1.002-1.036)
[2025-05-26 13:35] LABS: Bacteria/HPF 1+ HPF (None Seen)
[2025-05-26 13:36] LABS: Urine Culture Reflex No No
== END 2025-05-26 17:15 | disposition home or self-care (01) ==
LOC: ERS 12:00
DX: J03.90 Acute tonsillitis, unspecified (principal); E11.9 Type 2 diabetes mellitus without complications; I10 Essential (primary) hypertension; Z79.899 Other long term (current) drug therapy; Z79.84 Long term (current) use of oral hypoglycemic drugs; Z79.4 Long term (current) use of insulin
CPT/HCPCS: 36415; 70491; 80053; 81001; 83605; 85025; 86141; 87040; 93005; 96365; 96375; J0295; J1100; J1885; Q9967